=== PATIENT | male | born 1955 | race Caucasian/White ===

== ENCOUNTER 2017-10-18 11:41 | Inpatient (IN) | payer OTHER ==
[~2017-10-18] VITALS: Ht 180.3 cm; Wt 145.1 kg
[2017-10-18 11:51] VITALS: BP 183/80
[2017-10-18] MEDS ORDERED: NAPROSYN500 MG PO (11:54)
[2017-10-18] MEDS ORDERED: FLOMAX0.4 MG PO (11:55)
[2017-10-18] MEDS ORDERED: HUMALOG100 UNIT/1 SUBQ (11:55)
[2017-10-18] MEDS ORDERED: LIPITOR10 MG PO (11:55)
[2017-10-18] MEDS ORDERED: COZAAR 50 MG TA50 M2 PO (11:55)
[2017-10-18] MEDS ORDERED: GLUCOVANCE 2.51 EAC1 PO (11:55)
[2017-10-18] MEDS ORDERED: LANTUS100 UNIT/M SUBQ (11:55)
[2017-10-18] MEDS ORDERED: FISH OIL 1,001000 M2 PO (11:56)
[2017-10-18] MEDS ORDERED: MULTIVITAMINS1 EAC7 PO (11:56)
[2017-10-18] MEDS ORDERED: ASPIR 8181 MG PO (11:56)
[2017-10-18 13:33] LABS: ABSOLUTE BASOPHILS 0.1 thou/uL (0.0-0.2); ABSOLUTE EOSINOPHILS 0.4 thou/uL (0.0-0.7); ABSOLUTE MONOCYTES 1.4 thou/uL (0.0-1.2); ABSOLUTE NEUTROPHILS 10.4 thou/uL (1.6-8.1); HEMATOCRIT 36.3 % (42.0-52.0); HEMOGLOBIN 11.9 gm/dL (14.0-18.0); LYMPHOCYTES 14.1 %; MCH 29.8 pg (26.0-34.0); MCHC 32.6 g/dL (28.0-37.0); MCV 91.3 fL (80.0-100.0); MONOCYTES 9.4 %; MPV 9.3 fl. (7.2-11.1); NUCLEATED RBCS 0 /100WBC; PLATELET COUNT* 302 thou/uL (150-400); POLYS 72.5 %; RBC 3.98 mil/uL (4.50-6.00); RDW-CV 13.9 % (10.5-14.5); WBC 14.3 thou/uL (4.0-11.0)
[2017-10-18 13:42] LABS: CALCIUM 8.8 mg/dL (8.5-10.1); CREATININE 1.3 mg/dL (0.6-1.3)
[2017-10-18 13:47] LABS: ALBUMIN 3.1 g/dL (3.4-5.0); TOTAL BILIRUBIN 0.4 mg/dL (<0.1-1.0); TOTAL PROTEIN 7.7 g/dL (6.4-8.2)
--- NOTE | 2017-10-18 14:29 | NUR ---
INPATIENT NURSE GIVEN REPORT, GIVING PT DIFFERENT ROOM ASSIGNMENT, WILL CALL DOWN AFTER STAT CLEAN
[2017-10-18 16:33] VITALS: BP 148/78
[2017-10-18 17:28] VITALS: BP 136/74
--- NOTE | 2017-10-18 17:53 | NUR ---
ADMITTED TO ROOM 311 THIS AFTERNOON, BLOOD SUGAR 84, DENIES PAIN, NO DISTRESS NOTED, SEE ASSESSMENT FOR DETAILS, VANC INFUSING W/O DIFF TO 20G LAC, PHOTOS OF LEFT FOOT WOUND IN CHART, SPOKE TO HERRERA W/ PODIATRY, WILL ROUND ON PT IN AM, ANTICIPATE IV ABT THERAPY, POSSIBLE SURGICAL INTERVENTION TOWARD END OF WEEK. CARE PLAN REVIEWED W/ PT, NO QUESTIONS AT THIS TIME, CALL LIGHT IN REACH, CONT POC.
[2017-10-19 04:46] LABS: HEMATOCRIT 34.4 % (42.0-52.0); HEMOGLOBIN 11.3 gm/dL (14.0-18.0); MCHC 32.8 g/dL (28.0-37.0); MCV 91.6 fL (80.0-100.0); MPV 9.4 fl. (7.2-11.1); RBC 3.76 mil/uL (4.50-6.00); RDW-CV 13.4 % (10.5-14.5); WBC 11.6 thou/uL (4.0-11.0)
[2017-10-19 05:05] LABS: ALBUMIN 2.7 g/dL (3.4-5.0); CALCIUM 8.5 mg/dL (8.5-10.1); CREATININE 1.3 mg/dL (0.6-1.3); MAGNESIUM 1.4 mg/dL (1.8-2.4); POTASSIUM 3.7 mmol/L (3.5-5.1); TOTAL BILIRUBIN 0.4 mg/dL (<0.1-1.0)
--- NOTE | 2017-10-19 06:59 | NUR ---
PATIENT HAS RESTED THROUGHOUT THE NIGHT WITHOUT ANY ISSUES. PATIENT IS UP AD-CLIFF AND STEADY. VSS ON RA, ALTHOUGH BP ELEVATED. MEDICATIONS GIVEN AND CHARTED. NO C/O PAIN. ASSESSMENT CHARTED. IV IN RIGHT AC-SL. IV ABT'S GIVEN WITHOUT ANY ADVERSE SIDE EFFECTS NOTED. PATIENT INSTRUCTED TO USE CALL LIGHT WHEN NEEDING ASSISTANCE. HOURLY ROUNDS MADE. WILL CONTINUE WITH PLAN OF CARE AND NURSING TO MONITOR.
[2017-10-19 08:00] VITALS: BP 175/86
--- NOTE | 2017-10-19 11:32 | NUR ---
WOUND CARE NOTE: CONSULT RECEIVED FOR DIABETIC FOOT WOUND PATIENT PRESENTS WITH A FULL THICKNESS ULCERATION TO THE PLANTAR SURFACE OF HIS LEFT FOOT AT THE 4/5TH METATARSAL HEADS. WOUND MEASURES 2.5X3X1.5 WITH UNDERMINING FROM 6-11 O'CLOCK 1.5 CM. WOUND COVERED WITH YELLOW, MOIST, ADHERENT SLOUGH 100%. SRI-WOUND IS EDEMATOUS AND INFLAMMED. LEFT LOWER EXTREMITY IS EDEMATOUS. CLEANSED WOUND WITH WOUND CLEANSER, PATTED DRY. APPLIED AQUACEL AG INTO WOUND BED. COVERED WITH A BORDERED FOAM. FITTED PATIENT FOR A SIZE G TUBIGRIP TO ASSIST WITH EDEMA CONTROL. PATIENT TOLERATED DRESSING CHANGE WELL, NO PAIN INDICATED. EDUCATED PATIENT ON KEEPING OFF FOOT TO PROMOTE HEALING, COMMUNICATED UNDERSTANIDNG. EDUCATED PATIENT ON NEED FOR TIGHT BLOOD SUGAR CONTROL, COMMUNICATED UNDERSTANDING. EDUCATED PATIENT ON DRESSING SELECTION, COMMUNICATED UNDERSTANDING. RECOMMEND FOLLOW UP IN WOUND CENTER-HBO CANDIDATE? TIGHT BLOOD GLUCOSE CONTROL DEBRIDEMENT ELEVATION
--- NOTE | 2017-10-19 11:59 | 2DMMODE ---
[place] [address] 2 D/M-MODE ECHOCARDIOGRAM Name: SHILPA ZALDIVAR Room: [facility] ADM IN .John.#: [id number] Admission: 10/18/17 Attend Phys: Claudia Cole, Discharge: Date of : 53 Date of Service: 10/19/17 1159 Report #: [id number] THIS REPORT FOR: //name// APPROVED REPORT Study performed: 10/19/2017 10:18:14 EXAM: Comprehensive 2D, Doppler, and color-flow Echocardiogram Patient Location: In-Patient Room #: [facility] Status: routine BSA: 2.58 HR: 75 bpm BP: 136/74 mmHg Rhythm: NSR Other Information Study Quality: Good Indications Diabetes 2D Dimensions LVEF(%): 67.94 (>50%) IVSd: 14.53 (7-11mm) LVOT Diam: 20.10 (18-24mm) LVDd: 48.00 mm PWd: 14.14 (7-11mm) Ascending Ao: 36.87 (22-36mm) LVDs: 29.81 (25-40mm) Aortic Root: 36.14 mm Garcias's LVEF: 67.94 % Volumes Left Atrial Volume (Systole) LA ESV Index: 25.90 mL/m2 Aortic Valve AoV Peak Nick.: 1.47 m/s AO Peak Gr.: 8.68 mmHg LVOT Max P.02 mmHg AO Mean Gr.: 4.39 mmHg LVOT Mean P.71 mmHg LVOT Max V: 1.23 m/s AO V2 VTI: 31.77 cm LVOT Mean V: 0.75 m/s JONA (VTI): 2.67 cm2 LVOT V1 VTI: 26.72 cm Mitral Valve E/A Ratio: 0.76 [place] [address] 2 D/M-MODE ECHOCARDIOGRAM Name: SHILPA ZALDIVAR Room: [address] IN M.R.#: [id number] Admission: 10/18/17 Attend Phys: Claudia Cole, Discharge: Date of : 53 Date of Service: 10/19/17 1159 Report #: [id number] MV Decel. Time: 215.48 ms MV E Max Nick.: 0.96 m/s MV PHT: 62.49 ms MVA (PHT): 3.52 cm2 TDI E/Lateral E': 10.67 E/Medial E': 12.00 Medial E' Nick.: 0.08 m/s Lateral E' Nick.: 0.09 m/s Pulmonary Valve PV Peak Nick.: 0.92 m/s PV Peak Gr.: 3.36 mmHg Tricuspid Valve RAP Estimate: 5.00 mmHg TR Peak Gr.: 23.90 mmHg RVSP: 28.90 mmHg PA Pressure: 28.90 mmHg Left Ventricle The left ventricle is normal size. There is normal LV segmental wall motion. Mild to moderate concentric left ventricular hypertrophy. Left ventricular systolic function is normal. The left ventricular ejection fraction is within the normal range. LVEF is 55-60%. Grade I - abnormal relaxation pattern. Right Ventricle The right ventricle is normal size. The right ventricular systolic function is normal. Atria The left atrium size is normal. The right atrium size is normal. Aortic Valve Mild aortic valve sclerosis. Trace aortic regurgitation. There is no aortic valvular stenosis. Mitral Valve The mitral valve is normal in structure. Trace mitral regurgitation. No evidence of mitral valve stenosis. Tricuspid Valve The tricuspid valve is normal in structure. Trace tricuspid regurgitation. No pulmonary hypertension[place] [address] 2 D/M-MODE ECHOCARDIOGRAM Name: SHILPA ZALDIVAR Room: [address] IN [facility]#: [id number] Admission: 10/18/17 Attend Phys: Claudia Cole, Discharge: Date of : 53 Date of Service: 10/19/17 1159 Report #: [id number] Pulmonic valve is not well visualized. There is no pulmonic valvular regurgitation. Great Vessels The aortic root is normal in size. IVC is normal in size and collapses with >50% inspiration Pericardium There is no pericardial effusion. <Conclusion> Mild to moderate concentric left ventricular hypertrophy. LVEF is 55-60%. Mild aortic valve sclerosis. <ELECTRONICALLY SIGNED> By: Saleem Chen MD, FACC 10/19/17 1159 1159 1159 Saleem Chen MD, FACC /INF
--- NOTE | 2017-10-19 14:07 | NUR ---
CONSULTED TO PLACE PICC FOR PADDER ATB. ORDER AND CONSENT NOTED. SPOKE WITH PT ABOUT RISK AND BENIFIT. VOICED UNDERSTANDING AND AGREED. RIGHT UPPER ARM ASSESSED WITH ULTRASOUND. RIGHT CEPHALIC IDENTIFIED AND NOTED TO BE WIDLEY PATENT. 4FR SINGLE LUMAN POWER PICC PLACED TO RIGHT UPPER ARM CEPHALIC PER HOSPITAL POLICY. GOOD BRISK BLOOD RETURN AND EASY FLUSH. LINE CLEARED WITH SHERLOCK 3CG. LINE SECURED AND RELEASED FOR USE.
--- NOTE | 2017-10-19 14:26 | NUR ---
CM SPOKE TO THE PATIENT TO DISCUSS HOME SITUATION, DISCHARGE PLANNING, AND TO INFORM OF THE ROLE OF CM. PATIENT ALERT, ORIENTED, INDEPENDENT AND ACTIVE. PATIENT WORKS AND DRIVES. PATIENT RESIDES AT HOME WITH HIS SPOUSE. PATIENT OWNS 0 DME. PATIENT HAS NO HX OF OR SNF. PATIENT INFORMS THAT HIS ONLY DISCHARGE PLANNING CONCERN IS WITH BEING ABLE TO GET A KNEE SCOOTER FOR WHEN HE RETURNS TO WORK. CM SPOKE TO DR MACE AND SHE INFORMS THAT THE PATIENT MAY NEED I.V. ABT'S AT D/C. CM CONTACTED [facility] TO INFORM OF THE REFERRAL AND TO CHECK BENEFITS. CM WILL REMAIN AVAILABLE TO ASSIST AND FOLLOW NEEDED.
--- NOTE | 2017-10-19 15:41 | NUR ---
Nutrition: Pt seen for consult for wound. BMI is skewing nutrition risk. BMI: 44.7. Pt on CHO controlled diet. RD provided menu to pt. Admitted with Lt foot ulcer. H/o DM neuropathy, HTN, DM, gadiel. RX: insulin, aspirin, fish oil, MVI. Pt stated his last A1c, on Moday, was 8%. BG 65-194, alb 2.7, prealb 13.3. Has PICC for ABX. Eating 100% of meals. Has a knee scooter. We discussed importance of protein for wound healing. We briefly discussed importance of keeping tight BG control for wound healing. Pt understands. Agreed to Miguel b.i.d. RECOMMEND MVI WELL. Increased nutritent needs R/T wound healing AEB DM wound, depleted protein stores. Mild risk.
[2017-10-19 16:43] VITALS: BP 149/76
--- NOTE | 2017-10-19 17:17 | NUR ---
PATIENT RESTING IN BED. RALF TIS UP AD CLIFF IN ROOM. PATIENT HAS BEEN INSTRUCTED TO STAY OFF FOOT MUCH POSSIBLE. MARTITA WORKED WITH PHYSICAL THERAPY WITH SCOOTER TRAINING. PATIENT GIVEN SURGICAL WALKING SHOE FOR OFFLOADING. PATIENT SEEN BY WOUND CARE NURSE THIS AM. PATIENT HAD PICC LINE PLACED THIS AFTERNOON WITHOUT INCIDENT. PATIENT DENIES ANY NEEDS AT THIS TIME. CALL LIGHT WITHIN REACH. WILL CONTINUE TO MONITOR.
--- NOTE | 2017-10-19 20:57 | CON ---
[address] [address] CONSULTATION Name: ZENSHILPA Room: [address] IN M.R.#: [id number] Admission: 10/18/17 Attend Phys: Claudia Cole MD Discharge: Date of : 53 Report #: [id number] THIS REPORT FOR: //name// CC: Esteban Cole DATE OF SERVICE: 10/18/2017 CONSULTATION: Infectious diseases. HISTORY OF PRESENT ILLNESS: Mr Islas is a 62-year-old white male admitted to the hospital with deteriorating diabetic foot wound. The patient first noted the wound approximately 2 weeks ago. He saw his coding support specialist, was started on Augmentin and given an offloading boot. On followup, the wound appeared worse with more swelling and erythema. The patient was sent to the hospital for further evaluation. MRI showed evidence of osteomyelitis and septic arthritis of the fifth metatarsophalangeal joint. Infectious disease consultation was requested to assist with management. PAST MEDICAL HISTORY: Positive for diabetes with hypertension and hyperlipidemia. The patient is obese, weighing 317 pounds. He has prostatic hypertrophy. PAST SURGICAL HISTORY: Includes cholecystectomy. ALLERGIES: The patient has possible allergy to SULFA DRUGS. FAMILY HISTORY: Noncontributory. SOCIAL HISTORY: The patient is . 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 Denies use of tobacco or alcohol. REVIEW OF SYSTEMS: GENERAL: Negative for fevers, chills, sweats, weakness, malaise. ENT: No headache, sinus congestion, sore throat, trouble swallowing. NECK: No pain. CHEST: No cough, chest pain, shortness of breath. No angina. No syncope. No palpitations. GASTROINTESTINAL: The patient denies nausea, vomiting, diarrhea, constipation, abdominal pain. GENITOURINARY: No complaints. EXTREMITIES: The patient has minimal pain in his leg. PHYSICAL EXAMINATION: GENERAL: The patient appears comfortable, alert, oriented, pleasant, [place] [address] CONSULTATION Name: SHILPA ZALDIVAR Room: [address] IN ..#: [id number] Admission: 10/18/17 Attend Phys: Claudia Cole MD Discharge: Date of : 53 Report #: [id number] VITAL SIGNS: Show the patient has been afebrile since coming to the hospital. Blood pressure 136/74, pulse oximeter 96% to 99%. SKIN: Shows no rash, lesion or exanthem except for the foot described below. ENT: Negative. MENTAL STATUS: Normal. CARDIOVASCULAR: Heart sounds normal. LUNGS: Clear. ABDOMEN: Belly obese, soft, not tender. EXTREMITIES: Left foot has 1 to 2+ edema. On the plantar surface, around the fourth and fifth metatarsal head, is a malum perforans ulcer measuring about 1 x 2 x 0.5 cm. There are some superficial excoriations from tape, medial and on the dorsum of the foot. The forefoot is diffusely swollen, particularly on the lateral ray. The nails are in good repair. Pulses are palpable. Capillary refill is excellent. The other extremities are unremarkable. LABORATORY STUDIES: White count is 14.3, hemoglobin 11.9, platelets [id number]. Electrolytes normal. BUN 21, creatinine 1.3, albumin was normal. Liver function tests are normal. Lactate is normal. IMAGING DATA: The MRI shows osteomyelitis and septic arthritis under the wound. IMPRESSION: Diabetic foot wound with osteomyelitis. I discussed with the patient options include a ray amputation versus medical therapy, which involve 6 weeks of IV antibiotics based on cultures, offloading, and possible hyperbaric oxygen treatments as an adjunct. The patient has been started on vancomycin and Zosyn, which should offer excellent broad spectrum coverage pending results of cultures. I would like to check for metabolic impediments to healing such as hypothyroidism, poor nutrition, low zinc, and congestive heart failure. I would like to check hemoglobin A1c to assess his diabetic control. I would like for the patient to offload the foot as much as possible. In addition to the offloading boot, we may want to have physical therapy assist the patient with either crutch training or possibly even use of a knee scooter to try to keep his weight off the wound until it heals. I appreciate the opportunity of input in the care of this complex patient. I will be happy to follow the patient while he is in the hospital until Dr. Randolph returns. Thank you for this consultation. <ELECTRONICALLY SIGNED> By: Esteban Lee MD 10/19/172056 26 [id number] Lee MD /kajal
[2017-10-20] VITALS: BP 153/70
[2017-10-20 06:44] LABS: HEMATOCRIT 34.7 % (42.0-52.0); HEMOGLOBIN 11.5 gm/dL (14.0-18.0); MCH 29.8 pg (26.0-34.0); MCHC 33.1 g/dL (28.0-37.0); MCV 90.2 fL (80.0-100.0); MPV 8.8 fl. (7.2-11.1); RBC 3.85 mil/uL (4.50-6.00); RDW-CV 13.6 % (10.5-14.5); WBC 12.4 thou/uL (4.0-11.0)
[2017-10-20 06:52] LABS: ALBUMIN 2.8 g/dL (3.4-5.0); CREATININE 1.2 mg/dL (0.6-1.3); MAGNESIUM 1.6 mg/dL (1.8-2.4); POTASSIUM 3.7 mmol/L (3.5-5.1); TOTAL BILIRUBIN 0.3 mg/dL (<0.1-1.0); TOTAL PROTEIN 7.4 g/dL (6.4-8.2)
--- NOTE | 2017-10-20 06:52 | NUR ---
AOX4, PLEASANT. UP AD CLIFF IN ROOM. TUBIGRIP TO RLE. R PICC SL, ABX GIVEN ORDERED. DENIES PAIN OR PROBLEMS. HS ACCUCHECK 246, INSULIN GIVEN PT REQUESTS, HS SNACK GIVEN. AM LABS DRAWN. ABLE TO USE CALL LITE AND MAKE NEEDS KNOWN.
[2017-10-20 07:02] LABS: PREALBUMIN 13.3 mg/dL (18.0-35.7)
[2017-10-20 08:15] VITALS: BP 169/84
--- NOTE | 2017-10-20 14:10 | NUR ---
JEFERSON CONTACTED [employer] [facility] TO DISCUSS COST OF KNEE SCOOTER. [employer] [facility] INFORMS THAT THEY ARE '$500 MONTANEZ ONLY' FOR THE KNEE SCOOTER. [facility] NO LONGER SELLS KNEE SCOOTERS. [facility] INFOORMS THAT THEY ARE NOT IN NETWORK WITH THE PATIENTS INSURANCE, BUT CAN PROVIDE THE DME FOR $40 WK OR $140 PER MONTH. CM ALSO PROVIDED THE PATIENT WITH PRINTED INFO FOR [employer] WHICH HAS KNEE SCOOTERS FOR $138 ONLINE AND HAS 2-DAY SHIPPING. CM SPOKE TO THE PATIENT TO DISCUSS THE NEED FOR A KNEE SCOOTER, AND TO INFORM OF THE COST. PATIENT INFORMS THAT HE WILL DISCUSS THIS INFO WITH HIS SPOUSE. CM WILL REMAIN AVAILABLE TO ASSIST AND FOLLOW NEEDED.
[2017-10-20 16:12] VITALS: BP 177/89
--- NOTE | 2017-10-20 19:07 | NUR ---
PATIENT HAS BEEN A/O X 4 THIS SHIFT. HAS DENIED PAIN. DRESSING CHANGED TO LEFT FOOT THIS SHIFT, POST OP SHOE IN PLACE AND REMINDED TO KEEP WEIGHT OFF OF FOOT. BLOOD SUGARS CHARTED AND SS GIVEN WHEN INDICATED. CALLED AND SPOKE TO MICRO REGARDING CULTURES RESULTS AND STATES STILL PENDING. CULTURE RESULTS FROM OUTPATIENT PLACED IN CHART. RIGHT UPPER ARM PICC PATENT. PATIENT HOPEFUL TO BE DISCHARGED SOON. HOURLY ROUNDING COMPLETED. CALL LIGHT WITHIN REACH. WILL CONTINUE WITH PLAN OF CARE.
[2017-10-20 22:00] VITALS: BP 190/84
--- NOTE | 2017-10-21 05:35 | NUR ---
PATIENT SLEPT MOST OF THE NIGHT. PICC LINE REMAINS IN PLACE. IV ANTIBIOTIC WAS GIVEN ORDERED. DRESSING WAS CHANGED TO LEFT FOOT WOUND ONCE. PATIENT IS POSSIBLY GOING HOME TODAY. WILL CONTINUE TO MONITOR.
[2017-10-21 06:16] LABS: HEMOGLOBIN 11.9 gm/dL (14.0-18.0); MCH 29.6 pg (26.0-34.0); MCV 89.5 fL (80.0-100.0); MPV 8.8 fl. (7.2-11.1); RBC 4.03 mil/uL (4.50-6.00); RDW-CV 13.4 % (10.5-14.5); WBC 12.7 thou/uL (4.0-11.0)
[2017-10-21 06:41] LABS: CALCIUM 9.8 mg/dL (8.5-10.1); CREATININE 1.1 mg/dL (0.6-1.3); MAGNESIUM 1.6 mg/dL (1.8-2.4); POTASSIUM 3.9 mmol/L (3.5-5.1)
[2017-10-21 08:00] VITALS: BP 169/84
[2017-10-21 12:19] VITALS: BP 169/84
[2017-10-21] MEDS ORDERED: ROCEPHIN 11 GM/1001 IV (12:19)
[2017-10-21 15:36] VITALS: BP 169/84
--- NOTE | 2017-10-21 15:40 | NUR ---
SW met with pt to discuss knee scooter options and pt said he contacted his insurance who said knee scooter could be provided after all. SU contacted [facility] and received authorization and faxed information to provider choice of [employer]. SW faxed final order and information needed to [employer]; teaching and antibiotic delivered to pt prior to pt dc. Pt expressed comfort and understanding with the IV abx administering and pt will have pt to support and assist as needed.
--- NOTE | 2017-10-21 16:11 | NUR ---
PATIENT AND SPOUSE GIVEN DISCHARGE INSTRUCTIONS AT THIS TIME. PATIENT'S PICC LINE DRESSING CHANGED PRIOR TO DISCHARGE. DRESSING CHANGED TO LEFT FOOT AND PICS OBTAINED. PATIENT VERBALIZED UNDERSTANDING IN REGARDS TO DISCHARGE, WOUND CARE AND FOLLOW UP APPOINTMENTS. DISCHARGED TO HOME AT THIS TIME VIA WHEELCHAIR. PATIENT ESCORTED OFF NURSING UNIT VIA WHEELCHAIR WITH NURSING STAFF.
[2017-11-07] MEDS ORDERED: CIPRO250 M2 PO (13:32)
[2017-11-07] MEDS ORDERED: LANTUS100 UNIT/M SUBQ (13:35)
[2017-11-09] MEDS ORDERED: TYLENOL325 MG PO (16:49)
[2017-11-09] MEDS ORDERED: NORCO 5-325 TA1 EACH PO (16:55)
--- NOTE | 2018-01-12 12:18 | CON ---
[address] [address] CONSULTATION Name: SHILPA ZALDIVAR Room: [address] [place] M.R.#: [id number] Admission: 10/18/17 Attend Phys: Claudia Cole MD Discharge: 10/21/17 Date of : 53 Report #: [id number] THIS REPORT FOR: //name// CC: Esteban Cole DATE OF SERVICE: 10/19/2017 REASON FOR CONSULTATION: Diabetic foot infection of the left foot. HISTORY OF PRESENT ILLNESS: This 62-year-old male was admitted to the hospital after being referred to ER from my office. The patient was seen a week ago for referral from Dr. Gentile's office for diabetic foot infection. Cultures revealed Staph aureus. He was on Augmentin. He had significant erythema, edema, and ulceration with some necrotic debris, although it did not appear to probe to bone at that time. No sign of abscess was present. The patient was seen yesterday and condition had worsened. There did appear to be some small abscess under the fourth MPJ, I was able to exsanguinate fluid from. The erythema had not improved if not worsened and appeared to be able to probe to bone in the ulcer. He was referred to the ER. MRI revealed osteomyelitis of the proximal phalanx with septic arthritis of the fifth MPJ. Infectious Disease consultation has been performed. PAST MEDICAL HISTORY: Remarkable for diabetes, hypertension, hyperlipidemia and renal disease. OBJECTIVE FINDINGS: My physical exam reveals +2 edema. There is ulceration with measures 1 cm x 2 cm x 0.5 cm depth. There is erythema extending into the arch and on the dorsum of the foot with majority erythema around the fifth MPJ. LAB STUDIES: Reveal white blood cell count of 14.3, hemoglobin 11.9, BUN 21, creatinine 1.3. IMPRESSION: My impression is diabetic ulceration with osteomyelitis of the left foot. PLAN: Discussed options with the patient. The patient states that Dr. Lee had recommended IV antibiotic therapy with offloading. I discussed options with the patient the advantages and disadvantages involved of treatments including amputation of the fifth digit and fifth metatarsal head. The patient preferred to try IV antibiotic and wound care. Therefore, we will consult wound care for management of the ulceration and have infectious disease manage infection and refer to the [facility] [place] [address] CONSULTATION Name: SHILPA ZALDIVAR Room: [address] [place] .R.#: [id number] Admission: 10/18/17 Attend Phys: Claudia oCle MD Discharge: 10/21/17 Date of : 53 Report #: [id number] Thank you for this referral. <ELECTRONICALLY SIGNED> By: Javier Dooley DPM 01/12/18 1218 0846 Rich Dooley DPM /kajal
== END 2017-10-21 16:14 | disposition home or self-care (01) | DRG 638 ==
LOC: M.ERS 11:41 → M.TBA-ER 14:11 → M.3W 14:11
PROVIDERS: Internal Medicine Infectious Disease; Nurse Practitioner Psychiatric/Mental Health; ADMIT Internal Medicine
PROC: 05HY33Z Insertion of Infusion Device into Upper Vein, Percutaneous Approach (ICD-10-PCS; principal; 2017-10-19)
PROC: B54MZZZ Ultrasonography of Right Upper Extremity Veins (ICD-10-PCS; principal; 2017-10-19)
DX: E11.69 Type 2 diabetes mellitus with other specified complication (principal); M86.8X7 Other osteomyelitis, ankle and foot; L03.116 Cellulitis of left lower limb; R65.10 Systemic inflammatory response syndrome (SIRS) of non-infectious origin without acute organ dysfunction; E44.1 Mild protein-calorie malnutrition; Z68.41 Body mass index [BMI] 40.0-44.9, adult; E11.40 Type 2 diabetes mellitus with diabetic neuropathy, unspecified; E11.319 Type 2 diabetes mellitus with unspecified diabetic retinopathy without macular edema; N28.9 Disorder of kidney and ureter, unspecified; E11.621 Type 2 diabetes mellitus with foot ulcer; I10 Essential (primary) hypertension; E78.5 Hyperlipidemia, unspecified; E78.00 Pure hypercholesterolemia, unspecified; N40.0 Benign prostatic hyperplasia without lower urinary tract symptoms; L40.9 Psoriasis, unspecified; Z88.2 Allergy status to sulfonamides; Z90.49 Acquired absence of other specified parts of digestive tract; Z79.2 Long term (current) use of antibiotics; Z79.4 Long term (current) use of insulin; Z79.899 Other long term (current) drug therapy

== ENCOUNTER → 2017-10-26 | Outpatient (CLI) | payer OTHER ==
[~2017-10-26] MED LIST: ASPIR 8181 MG PO; CIPRO250 M2 PO; COZAAR 50 MG TA50 M2 PO; FISH OIL 1,001000 M2 PO; FLOMAX0.4 MG PO; GLUCOVANCE 2.51 EAC1 PO; HUMALOG100 UNIT/1 SUBQ; LANTUS100 UNIT/M SUBQ; LIPITOR10 MG PO; MULTIVITAMINS1 EAC7 PO; NAPROSYN500 MG PO; NORCO 5-325 TA1 EACH PO; ROCEPHIN 11 GM/1001 IV; TYLENOL325 MG PO
--- NOTE | 2017-10-27 12:35 | CON ---
[address] [address] CONSULTATION Name: SHILPA ZALDIVAR Room: [facility] Annabella.John.#: [id number] Admission: 10/26/17 Attend Phys: Oneil Bradley DPM Discharge: Date of : 53 Report #: [id number] THIS REPORT FOR: //name// CC: Oneil Randolph DATE OF SERVICE: 10/26/2017 Infectious Disease Consultation ATTENDING PHYSICIAN: Oneil Bradley DPM REASON FOR EVALUATION: Deep infection involving the left foot setting of chronic ulceration overlying the fifth metatarsal site with imaging evidence of possible septic arthritis and osteomyelitis. HISTORY OF PRESENT ILLNESS: Chart reviewed, patient examined. This is a 62-year-old with diabetes mellitus who was hospitalized with chronic wound, noted it had increasing inflammation associated with the distal lower extremity. Previous culture had growth of susceptible Staph aureus, had been on Augmentin. He was discharged on ceftriaxone and repeat culture did have now growth of Morganella, which is not clear about susceptibilities to ceftriaxone based on the reporting. It is not listed. There is some moderate degree of pain associated with the site. He does have some peripheral neuropathy. Generally, he has not been systemically ill. ALLERGIES: SULFA. MEDICATIONS: Include aspirin, atorvastatin, ceftriaxone, enoxaparin, insulin, losartan, pantoprazole, tamsulosin, and multivitamin. PAST MEDICAL HISTORY: Includes diabetes mellitus type 2, hypertension, elevated cholesterol, peripheral neuropathy, psoriasis. SOCIAL HISTORY: Nonsmoker, no ethanol. FAMILY HISTORY: Noncontributory. REVIEW OF SYSTEMS: As above. PHYSICAL EXAMINATION: GENERAL: Pleasant, alert, cooperative, appropriate. VITAL SIGNS: Vital signs are stable. HEENT: [place] [address] CONSULTATION Name: RACHANALEEMARTINSHILPA Gilman Room: [facility].#: [id number] Admission: 10/26/17 Attend Phys: Oneil Bradley DPM Discharge: Date of : 53 Report #: [id number] NECK: Supple. LUNGS: Breathing is nonlabored. EXTREMITIES: Left foot has some Charcot changes. There is lateral plantar ulcer overlying the fifth metatarsal, also has recent breakdown over the arch. There is some moderate degree of inflammation. LABORATORY DATA: Review of recent cultures reported today now shows Morganella. This is after he has left and Enterococcus in a combination culture, which is penicillin susceptible. ASSESSMENT: Deep foot infection. It is not entirely clear whether this is truly osteomyelitis. We will continue the ceftriaxone and discuss with Dr. Bradley. I think we will notify the patient and add ciprofloxacin, as well given in vitro resistance to the Augmentin and worsening signs and symptoms in the setting of previous deep culture involving Staph aureus. We will see him back in 1 week and get weekly labs. <ELECTRONICALLY SIGNED> By: Blayne Randolph MD 10/27/17 1235 1727 [id number] Randolph MD /kajal
== END ==
LOC: M.WC 13:18
DX: E11.621 Type 2 diabetes mellitus with foot ulcer (principal); L97.521 Non-pressure chronic ulcer of other part of left foot limited to breakdown of skin; I10 Essential (primary) hypertension; E78.5 Hyperlipidemia, unspecified

== ENCOUNTER → 2017-11-02 | Outpatient (CLI) | payer OTHER ==
--- NOTE | 2017-11-03 11:44 | CON ---
[address] [address] CONSULTATION Name: ZENSHILPA Room: [facility] M.John.#: [id number] Admission: 11/02/17 Attend Phys: Oneil Bradley DPM Discharge: Date of : 53 Report #: [id number] THIS REPORT FOR: //name// CC: Oneil Gentile DATE OF SERVICE: 11/02/2017 Infectious Disease Consultation ATTENDING PHYSICIAN: Oneil Bradley DPM HISTORY OF PRESENT ILLNESS: He is here for followup: Left lateral foot chronic ulcer involving the plantar aspect overlying the fifth MTP. The patient examined , although returns in followup. Generally, he feels a little changed from previous. Denies any systemic illness. Evaluation ordered by Dr. Bradley last week including x-ray showed changes in the bone, likely destructive consistent with chronic osteomyelitis. He has got a new wound in the webspace between the fourth and fifth toe that extends several centimeters. Probable chronic osteomyelitis. At this point, Dr. Bradley recommends additional surgery, did review the cultures , although initially had the Staph aureus, now he has got Morganella. Ciprofloxacin was added based on susceptibilities, so he is on combination ceftriaxone and Cipro at this point. I did ask Dr. Bradley to get the cultures at the time of sounds like ray amputation. It is scheduled hopefully within the next week. We will adjust therapy as needed. Continue to monitor expectantly. We will see him back within 1 to 2 weeks depending on the timing of the surgery. <ELECTRONICALLY SIGNED> By: Blayne Randolph MD 11/03/17 1144 1620 0326Jogarry Randolph MD /nt
== END ==
LOC: M.WC 03:24
DX: E11.621 Type 2 diabetes mellitus with foot ulcer (principal); L97.521 Non-pressure chronic ulcer of other part of left foot limited to breakdown of skin; E78.5 Hyperlipidemia, unspecified; I10 Essential (primary) hypertension

== ENCOUNTER → 2017-11-09 | Day surgery (SDC) | payer OTHER ==
--- NOTE | 2017-11-11 10:21 | EKG ---
[place] [address] ELECTROCARDIOGRAM REPORT Name: SHILPA ZALDIVAR [id number] Admission: 11/09/17 Attend Phys: Oneil Bradley DPM Discharge: Date of : 53 Report #: [id number] THIS REPORT FOR: //name// [facility] Test Date: 2017-11-09 Test Time: 13:56:51 Pat Name: SHILPA ZALDIVAR Department: Room: Gender: M Hospital Pharmacy Director: : 1955 Requested By: Oneil Bradley Order Number: [id number] Reading MD: Osmar Almaraz Measurements Intervals [place] Rate: 77 P: -7 RI: 175 QRS: -21 QRSD: 88 T: 30 QT: 376 QTc: 426 Interpretive Statements Sinus rhythm Borderline left axis deviation Compared to ECG 06/01/2006 13:59:38 No significant changes Electronically Signed On 11-11-2017 10:21:19 CDT by Osmar Almaraz [email or web address] <ELECTRONICALLY SIGNED> By: Osmar Almaraz MD, [facility] 11/11/17 1021 1356 1356 Osmar Almaraz MD, [facility] /EPI
--- NOTE | 2017-11-16 13:04 | OP ---
[address] [address] OPERATIVE REPORT Name: ZENSHILPA Room: [facility]..#: [id number] Admission: 11/09/17 Attend Phys: Oneil Bradley DPM Discharge: Date of : 53 Report #: [id number] THIS REPORT FOR: //name// CC: Oneil Randolph DATE OF SERVICE: 11/09/2017 SURGEON: Oneil Bradley DPM PREOPERATIVE DIAGNOSIS: Osteomyelitis, left fifth MTP with type 2 diabetes mellitus. POSTOPERATIVE DIAGNOSES: Osteomyelitis, left fifth MTP with type 2 diabetes mellitus. PROCEDURE: 1. Resection, left distal fifth metatarsal and fifth toe. 2. Incision and drainage, left foot. 3. Pedicle skin flap, left foot. ANESTHESIA: MAC. INJECTABLES: 30 mL of a 1:1 mixture of 0.5% Marcaine plain and 1% lidocaine plain. HEMOSTASIS: Left ankle pneumatic tourniquet at 275 mmHg. SUTURES: 3-0 nylon. SPECIMENS: Left distal fifth metatarsal and fifth toe. CULTURES: 1. Bone, proximal phalanx of left fifth toe, aerobic and anaerobic. 2. Soft tissue, left foot, aerobic and anaerobic. ESTIMATED BLOOD LOSS: Minimal. COMPLICATIONS: None. DESCRIPTION OF PROCEDURE: The patient brought to the OR and placed on the table supine with induction of MAC anesthesia. A well-padded left ankle pneumatic tourniquet was placed. A local anesthetic block was given to the foot and it was prepped and draped aseptically. The foot was exsanguinated with inflation of the tourniquet. A #10 surgical blade was used [place] [address] OPERATIVE REPORT Name: ZENSHILPA Room: [facility].#: [id number] Admission: 11/09/17 Attend Phys: Oneil Bradley DPM Discharge: Date of : 53 Report #: [id number] incision over the left distal fifth metatarsal and then circumferentially around the fifth toe. Layered anatomic dissection utilized with electrocautery for hemostasis. The fifth toe was disarticulated at the MTP joint. The base of the proximal phalanx had osteolysis with discoloration, consistent with osteomyelitis. The distal fifth metatarsal was slightly discolored with a yellowish hue, but no bone destruction was noted to the metatarsal head. I transected the fifth metatarsal at the distal metaphysis where the bone was hard. I submitted the portion of bone from the proximal phalanx for aerobic and anaerobic cultures. The remaining fifth toe and fifth metatarsal were sent for surgical pathology. The flexor and extensor tendons were transected proximally and the wound was flushed with sterile saline with bacitracin irrigant. A plantar lateral skin flap was mobilized dorsomedially and sutured with 3-0 nylon in simple interrupted fashion for complete surgical incision closure. The existing plantar wound at the fifth MTP region was debrided with a scalpel to remove subcutaneous tissue and callus from the margins. It was cleansed and dried. The incision and wound were dressed with Aquacel Ag and covered with fluffs, ABDs, Kerlix and Ramez bandage. The tourniquet was deflated, and the patient left the OR alert and oriented with no pain or complications noted. <ELECTRONICALLY SIGNED> By: Oneil Bradley DPM 11/16/17 1304 1802 1820Dashobha Bradley DPM /nt
--- NOTE | 2017-11-17 07:06 | PATH ---
[address] [address] PATHOLOGY RPT PROCEDURE Name: ZENSHILPA Room: [facility] Arpan#: [id number] Admission: 11/09/17 Date of : 53 Discharge: Report #: [id number] Path Case #: [id number] [facility] Accession Number: [id number] . 01 Material submitted: . LEFT 5TH TOE AND METATARSAL . 01 Clinical history: . Osteomyelitis left fifth metatarsal . 02 Diagnosis: Left fifth toe and metatarsal: - Benign toe showing phalangeal osteomyelitis in association with foreign body type granulomata entrapping predominantly nonbirefrigent foreign material. - Separate benign osteocartilaginous segment consistent with metatarsal with prominent osteomyelitis at articular end, with opposite transection end free of osteomyelitis. (AMADOU:marko; 11/12/2017) QMS/11/14/2017 . 02 Electronically signed: . Owen Canseco MD, Pathologist NPI- [id number] . 01 Gross description: . The specimen is received in formalin, labeled "Shilpa Zaldivar, left fifth toe and metatarsal". Received is an amputated digit measuring 4.6 x 2.1 x 2.1 cm in greatest dimensions. The bone margin is jagged in appearance. The bone and soft tissue margins are inked black. The nail is present displaying a pale arias and slightly flaky appearance. The epidermal surface is pale arias and slightly flaky in appearance. A full length longitudinal cross section is submitted from proximal to distal aspects in cassettes A1 and A2, following decalcification. . Also received within the specimen container is an additional segment of bone measuring 3.5 x 2.0 x 1.3 cm in greatest matured. One margin is blunt in appearance, consistent with transection, and the opposite margin is smooth and convex in appearance, consistent with disarticulation. The transected margin is inked blue. A full-thickness longitudinal cross section is submitted from proximal to distal aspects in cassettes A3 and A4, following decalcification. (CAA; 11/10/2017) QAC/QAC . 02 Pathologist provided ICD-10: M86.8X7 . 02 [place] [address] PATHOLOGY RPT PROCEDURE Name: SHILPA ZALDIVAR Room: [facility]..#: [id number] Admission: 11/09/17 Date of : 53 Discharge: Report #: [id number] Path Case #: [id number] [facility] . [id number], [id number] Performed at: 01 [facility] [place] [address] [facility] [address], [place] [id number] MD Emile Raya MD Phone: [phone] Performed at: 02 [facility] [address], [place], [place] [id number] MD Owen Canseco MD Phone: [phone]
== END | disposition home or self-care (01) ==
LOC: M.SUR 09:59
DX: E11.69 Type 2 diabetes mellitus with other specified complication (principal)

== ENCOUNTER → 2017-11-16 | Outpatient (CLI) | payer OTHER ==
--- NOTE | 2017-11-17 15:01 | CON ---
[address] [address] CONSULTATION Name: SHILPA ZALDIVAR Room: [facility] TRAY Gonzalez.#: [id number] Admission: 11/16/17 Attend Phys: Oneil Bradley DPM Discharge: Date of : 53 Report #: [id number] THIS REPORT FOR: //name// CC: Oneil Gentile DATE OF SERVICE: 11/16/2017 INFECTIOUS DISEASE CONSULTATION ATTENDING PHYSICIAN: Oneil Bradley DPM. HISTORY OF PRESENT ILLNESS: This patient is seen in the [facility] at [place]. The patient is seen in followup. He is post surgery involving his left foot further debridement with partial osteoectomy. This was confirmed on pathology to have osteomyelitis. He has completed roughly 4 weeks of combination therapy with Cipro and ceftriaxone. Clinically, he has done well over the course of the last week. He denies any significant localizing signs or symptoms. He has not been systemically ill. ASSESSMENT AND PLAN: Chronic osteomyelitis. He is post left foot partial osteoectomy. We will continue therapy as prescribed, likely additional 2 weeks. We will see him back on a weekly basis at this point. Wound care as per Dr. Bradley. He did instruct him to continue to offload the site and elevate to minimize swelling to the extent possible. <ELECTRONICALLY SIGNED> By: Blayne Randolph MD 11/17/17 1501 0858 [id number] Randolph MD /kajal
== END ==
LOC: M.WC 04:37
DX: T81.89XA Other complications of procedures, not elsewhere classified, initial encounter (principal); E11.621 Type 2 diabetes mellitus with foot ulcer; L97.521 Non-pressure chronic ulcer of other part of left foot limited to breakdown of skin; L89.893 Pressure ulcer of other site, stage 3; E11.40 Type 2 diabetes mellitus with diabetic neuropathy, unspecified; E11.69 Type 2 diabetes mellitus with other specified complication; M86.672 Other chronic osteomyelitis, left ankle and foot; I10 Essential (primary) hypertension; L84 Corns and callosities; E78.5 Hyperlipidemia, unspecified; Y92.89 Other specified places as the place of occurrence of the external cause; Y83.8 Other surgical procedures as the cause of abnormal reaction of the patient, or of later complication, without mention of misadventure at the time of the procedure

== ENCOUNTER → 2017-11-23 | Outpatient (CLI) | payer OTHER ==
--- NOTE | 2017-11-25 07:56 | CON ---
[address] [address] CONSULTATION Name: ZENSHILPA Room: [facility] TRAY Gonzalez.#: [id number] Admission: 11/23/17 Attend Phys: Oneil Bradley DPM Discharge: Date of : 53 Report #: [id number] THIS REPORT FOR: //name// CC: Oneil Gentile DATE OF SERVICE: 11/23/2017 ATTENDING PHYSICIAN: Dr. Oneil Bradley. REASON FOR EVALUATION: Here for osteomyelitis of the left lateral foot. He is post-fifth toe ray amputation. Chart reviewed, patient examined. This is a 62-year-old, seen in followup, having undergone operative procedure roughly 2 weeks ago. He had been hospitalized 5 weeks ago, was started on therapy. Operative cultures were negative at that time including the bone. He has generally been doing fairly well ____ antibiotics, ceftriaxone. On evaluation, the wound appears to be clearly improved. Denies any systemic or localizing signs and symptoms. I did review the labs, which showed sed rate to be normal. ASSESSMENT AND PLAN: Chronic osteomyelitis. At this point, given the totality information, I think it is reasonable to discontinue the antibiotics. He has completed roughly 5 weeks of treatment. Discussed with Dr. Bradley who was agreeable. We will go and remove the PICC line as well. We will see him back in 1 week, likely be discharged from my care at that point. <ELECTRONICALLY SIGNED> By: Blayne Randolph MD 11/25/17 0756 1022 [id number] Anita Randolph MD /nt
== END ==
LOC: M.WC 04:52
DX: T81.89XD Other complications of procedures, not elsewhere classified, subsequent encounter (principal); E11.40 Type 2 diabetes mellitus with diabetic neuropathy, unspecified; L89.893 Pressure ulcer of other site, stage 3; L97.521 Non-pressure chronic ulcer of other part of left foot limited to breakdown of skin; E11.69 Type 2 diabetes mellitus with other specified complication; M86.672 Other chronic osteomyelitis, left ankle and foot; I10 Essential (primary) hypertension; E78.5 Hyperlipidemia, unspecified; Y83.8 Other surgical procedures as the cause of abnormal reaction of the patient, or of later complication, without mention of misadventure at the time of the procedure

== ENCOUNTER → 2017-11-30 | Outpatient (CLI) | payer OTHER | LOC: M.WC 03:05 | DX: T87.89 Other complications of amputation stump (principal); E11.621 Type 2 diabetes mellitus with foot ulcer; L97.521 Non-pressure chronic ulcer of other part of left foot limited to breakdown of skin; E11.42 Type 2 diabetes mellitus with diabetic polyneuropathy; E11.69 Type 2 diabetes mellitus with other specified complication; M86.672 Other chronic osteomyelitis, left ankle and foot; L84 Corns and callosities; E78.5 Hyperlipidemia, unspecified; I10 Essential (primary) hypertension; Y83.5 Amputation of limb(s) as the cause of abnormal reaction of the patient, or of later complication, without mention of misadventure at the time of the procedure ==

== ENCOUNTER → 2017-12-07 | Outpatient (CLI) | payer OTHER ==
--- NOTE | 2017-12-08 12:26 | CON ---
[address] [address] CONSULTATION Name: ZENSHILPA Room: [facility] TRAY Gonzalez.#: [id number] Admission: 12/07/17 Attend Phys: Oneil Bradley DPM Discharge: Date of : 53 Report #: [id number] THIS REPORT FOR: //name// CC: Oneil Gentile DATE OF SERVICE: 12/07/2017 INFECTIOUS DISEASE CONSULTATION AND FOLLOWUP ATTENDING PHYSICIAN: Dr. Oneil Bradley. HISTORY OF PRESENT ILLNESS: The patient returns in followup. He is post-debridement of deep-seated infection involving his left foot post-osteoectomy, continues to have wounds, although they clearly have improved over the course of the last 2 weeks since I last saw him. At that point, antibiotics were felt to have been sufficient. They were discontinued, PICC line was pulled. On questioning, he denies any particular illness in the interim, states he has generally been feeling well. Appetite is good. No fevers. Really, he has no discomfort associated with his foot. On evaluation, Dr. Bradley felt the wound continued to improve. He did debride it. There was no exposed hard tissue or bone at the base. IMPRESSION AND PLAN: Osteomyelitis, left foot. We will not plan on additional antibiotics, he has been off for 2 weeks and he continued to improve. He needs to optimize his nutritional status, offload is critical in addition to the wound care. <ELECTRONICALLY SIGNED> By: Blayne Randolph MD 12/08/17 1226 0902 [id number] Randolph MD /nt
== END ==
LOC: M.WC 05:20
DX: T87.89 Other complications of amputation stump (principal); E11.621 Type 2 diabetes mellitus with foot ulcer; L97.521 Non-pressure chronic ulcer of other part of left foot limited to breakdown of skin; L84 Corns and callosities; E11.69 Type 2 diabetes mellitus with other specified complication; M86.672 Other chronic osteomyelitis, left ankle and foot; E11.42 Type 2 diabetes mellitus with diabetic polyneuropathy; E78.5 Hyperlipidemia, unspecified; I10 Essential (primary) hypertension; Y83.5 Amputation of limb(s) as the cause of abnormal reaction of the patient, or of later complication, without mention of misadventure at the time of the procedure

== ENCOUNTER → 2017-12-14 | Outpatient (CLI) | payer OTHER | LOC: M.WC 04:31 | DX: T81.89XA Other complications of procedures, not elsewhere classified, initial encounter (principal); E11.621 Type 2 diabetes mellitus with foot ulcer; L97.521 Non-pressure chronic ulcer of other part of left foot limited to breakdown of skin; L89.893 Pressure ulcer of other site, stage 3; L84 Corns and callosities; E11.69 Type 2 diabetes mellitus with other specified complication; M86.672 Other chronic osteomyelitis, left ankle and foot; E11.42 Type 2 diabetes mellitus with diabetic polyneuropathy; E78.5 Hyperlipidemia, unspecified; I10 Essential (primary) hypertension; Y92.89 Other specified places as the place of occurrence of the external cause; Y83.8 Other surgical procedures as the cause of abnormal reaction of the patient, or of later complication, without mention of misadventure at the time of the procedure ==

== ENCOUNTER → 2017-12-21 | Outpatient (CLI) | payer OTHER | LOC: M.WC 04:00 | DX: T87.89 Other complications of amputation stump (principal); E11.621 Type 2 diabetes mellitus with foot ulcer; L97.521 Non-pressure chronic ulcer of other part of left foot limited to breakdown of skin; L89.893 Pressure ulcer of other site, stage 3; L84 Corns and callosities; E11.69 Type 2 diabetes mellitus with other specified complication; M86.672 Other chronic osteomyelitis, left ankle and foot; E11.40 Type 2 diabetes mellitus with diabetic neuropathy, unspecified; E78.5 Hyperlipidemia, unspecified; I10 Essential (primary) hypertension; Y83.5 Amputation of limb(s) as the cause of abnormal reaction of the patient, or of later complication, without mention of misadventure at the time of the procedure ==

== ENCOUNTER → 2017-12-28 | Outpatient (CLI) | payer OTHER | LOC: M.WC 01:57 | DX: T87.89 Other complications of amputation stump (principal); E11.621 Type 2 diabetes mellitus with foot ulcer; L97.521 Non-pressure chronic ulcer of other part of left foot limited to breakdown of skin; E11.69 Type 2 diabetes mellitus with other specified complication; M86.672 Other chronic osteomyelitis, left ankle and foot; E11.40 Type 2 diabetes mellitus with diabetic neuropathy, unspecified; E78.5 Hyperlipidemia, unspecified; I10 Essential (primary) hypertension; Y83.5 Amputation of limb(s) as the cause of abnormal reaction of the patient, or of later complication, without mention of misadventure at the time of the procedure ==

== ENCOUNTER → 2018-01-04 | Outpatient (CLI) | payer OTHER | LOC: M.WC 05:43 | DX: T87.89 Other complications of amputation stump (principal); E11.621 Type 2 diabetes mellitus with foot ulcer; L97.521 Non-pressure chronic ulcer of other part of left foot limited to breakdown of skin; L84 Corns and callosities; E11.40 Type 2 diabetes mellitus with diabetic neuropathy, unspecified; E78.5 Hyperlipidemia, unspecified; I10 Essential (primary) hypertension; Y83.5 Amputation of limb(s) as the cause of abnormal reaction of the patient, or of later complication, without mention of misadventure at the time of the procedure ==

== ENCOUNTER → 2018-01-11 | Outpatient (CLI) | payer OTHER | LOC: M.WC 14:00 | DX: T81.89XD Other complications of procedures, not elsewhere classified, subsequent encounter (principal); E11.621 Type 2 diabetes mellitus with foot ulcer; L97.511 Non-pressure chronic ulcer of other part of right foot limited to breakdown of skin; E11.40 Type 2 diabetes mellitus with diabetic neuropathy, unspecified; E78.5 Hyperlipidemia, unspecified; I10 Essential (primary) hypertension; Y83.8 Other surgical procedures as the cause of abnormal reaction of the patient, or of later complication, without mention of misadventure at the time of the procedure ==

== ENCOUNTER → 2018-01-18 | Outpatient (CLI) | payer OTHER | LOC: M.WC 03:02 | DX: T87.89 Other complications of amputation stump (principal); T81.89XD Other complications of procedures, not elsewhere classified, subsequent encounter; E11.621 Type 2 diabetes mellitus with foot ulcer; L97.512 Non-pressure chronic ulcer of other part of right foot with fat layer exposed; E11.69 Type 2 diabetes mellitus with other specified complication; M86.672 Other chronic osteomyelitis, left ankle and foot; E11.42 Type 2 diabetes mellitus with diabetic polyneuropathy; E78.5 Hyperlipidemia, unspecified; L84 Corns and callosities; I10 Essential (primary) hypertension; I87.2 Venous insufficiency (chronic) (peripheral); Y83.5 Amputation of limb(s) as the cause of abnormal reaction of the patient, or of later complication, without mention of misadventure at the time of the procedure; Y83.8 Other surgical procedures as the cause of abnormal reaction of the patient, or of later complication, without mention of misadventure at the time of the procedure ==

== ENCOUNTER → 2018-01-25 | Outpatient (CLI) | payer OTHER | LOC: M.WC 03:11 | DX: T87.89 Other complications of amputation stump (principal); E11.621 Type 2 diabetes mellitus with foot ulcer; L97.511 Non-pressure chronic ulcer of other part of right foot limited to breakdown of skin; L84 Corns and callosities; E11.69 Type 2 diabetes mellitus with other specified complication; M86.672 Other chronic osteomyelitis, left ankle and foot; E11.40 Type 2 diabetes mellitus with diabetic neuropathy, unspecified; E78.5 Hyperlipidemia, unspecified; I10 Essential (primary) hypertension; I87.2 Venous insufficiency (chronic) (peripheral); Y83.5 Amputation of limb(s) as the cause of abnormal reaction of the patient, or of later complication, without mention of misadventure at the time of the procedure ==

== ENCOUNTER → 2018-02-01 | Outpatient (CLI) | payer OTHER | LOC: M.WC 05:06 | DX: T87.89 Other complications of amputation stump (principal); E11.621 Type 2 diabetes mellitus with foot ulcer; L97.511 Non-pressure chronic ulcer of other part of right foot limited to breakdown of skin; L84 Corns and callosities; E11.42 Type 2 diabetes mellitus with diabetic polyneuropathy; E78.5 Hyperlipidemia, unspecified; I10 Essential (primary) hypertension; Y83.5 Amputation of limb(s) as the cause of abnormal reaction of the patient, or of later complication, without mention of misadventure at the time of the procedure ==

== ENCOUNTER → 2018-02-08 | Outpatient (CLI) | payer OTHER | LOC: M.WC 05:06 | DX: T87.89 Other complications of amputation stump (principal); E11.621 Type 2 diabetes mellitus with foot ulcer; L97.512 Non-pressure chronic ulcer of other part of right foot with fat layer exposed; L84 Corns and callosities; E11.69 Type 2 diabetes mellitus with other specified complication; M86.672 Other chronic osteomyelitis, left ankle and foot; E11.42 Type 2 diabetes mellitus with diabetic polyneuropathy; E78.5 Hyperlipidemia, unspecified; I10 Essential (primary) hypertension; Y83.5 Amputation of limb(s) as the cause of abnormal reaction of the patient, or of later complication, without mention of misadventure at the time of the procedure ==

== ENCOUNTER → 2018-02-15 | Outpatient (CLI) | payer OTHER | LOC: M.WC 03:22 | DX: E11.621 Type 2 diabetes mellitus with foot ulcer (principal); L97.512 Non-pressure chronic ulcer of other part of right foot with fat layer exposed; L84 Corns and callosities; E11.40 Type 2 diabetes mellitus with diabetic neuropathy, unspecified; E11.69 Type 2 diabetes mellitus with other specified complication; M86.672 Other chronic osteomyelitis, left ankle and foot; E78.5 Hyperlipidemia, unspecified; I10 Essential (primary) hypertension ==

== ENCOUNTER → 2018-02-22 | Outpatient (CLI) | payer OTHER | LOC: M.WC 04:34 | DX: E11.621 Type 2 diabetes mellitus with foot ulcer (principal); L97.512 Non-pressure chronic ulcer of other part of right foot with fat layer exposed; L84 Corns and callosities; E11.69 Type 2 diabetes mellitus with other specified complication; M86.672 Other chronic osteomyelitis, left ankle and foot; E11.42 Type 2 diabetes mellitus with diabetic polyneuropathy; E78.5 Hyperlipidemia, unspecified; I87.2 Venous insufficiency (chronic) (peripheral); I10 Essential (primary) hypertension; Z89.422 Acquired absence of other left toe(s) ==

== ENCOUNTER → 2018-03-01 | Outpatient (CLI) | payer OTHER ==
[2018-03-01 15:17] LABS: CALCIUM 8.9 mg/dL (8.5-10.1); CREATININE 1.4 mg/dL (0.6-1.3)
[2018-03-01 15:21] LABS: ALBUMIN 3.2 g/dL (3.4-5.0); TOTAL BILIRUBIN 0.3 mg/dL (<0.1-1.0)
== END ==
LOC: M.WC 02:51
PROVIDERS: Podiatrist Foot & Ankle Surgery
DX: E11.621 Type 2 diabetes mellitus with foot ulcer (principal); L97.512 Non-pressure chronic ulcer of other part of right foot with fat layer exposed; L84 Corns and callosities; E11.40 Type 2 diabetes mellitus with diabetic neuropathy, unspecified; E11.69 Type 2 diabetes mellitus with other specified complication; M86.672 Other chronic osteomyelitis, left ankle and foot; E78.5 Hyperlipidemia, unspecified; I10 Essential (primary) hypertension

== ENCOUNTER → 2018-03-08 | Outpatient (CLI) | payer OTHER | LOC: M.WC 04:41 | DX: E11.621 Type 2 diabetes mellitus with foot ulcer (principal); L97.512 Non-pressure chronic ulcer of other part of right foot with fat layer exposed; E11.69 Type 2 diabetes mellitus with other specified complication; M86.672 Other chronic osteomyelitis, left ankle and foot; E11.40 Type 2 diabetes mellitus with diabetic neuropathy, unspecified; E78.5 Hyperlipidemia, unspecified; I10 Essential (primary) hypertension; Z89.422 Acquired absence of other left toe(s) ==

== ENCOUNTER → 2018-03-15 | Outpatient (CLI) | payer OTHER | LOC: M.WC 01:54 | DX: E11.621 Type 2 diabetes mellitus with foot ulcer (principal); L97.516 Non-pressure chronic ulcer of other part of right foot with bone involvement without evidence of necrosis; L84 Corns and callosities; E11.69 Type 2 diabetes mellitus with other specified complication; M86.672 Other chronic osteomyelitis, left ankle and foot; E11.42 Type 2 diabetes mellitus with diabetic polyneuropathy; E78.5 Hyperlipidemia, unspecified; I10 Essential (primary) hypertension; Z89.422 Acquired absence of other left toe(s) ==

== ENCOUNTER → 2018-03-22 | Outpatient (CLI) | payer OTHER ==
[2018-03-22 15:13] LABS: ABSOLUTE BASOPHILS 0.1 thou/uL (0.0-0.2); ABSOLUTE EOSINOPHILS 0.2 thou/uL (0.0-0.7); ABSOLUTE LYMPHOCYTES 2.3 thou/uL (0.8-5.3); ABSOLUTE MONOCYTES 1.1 thou/uL (0.0-1.2); ABSOLUTE NEUTROPHILS 10.9 thou/uL (1.6-8.1); BASOPHILS 0.6 %; EOSINOPHILS 1.5 %; HEMATOCRIT 37.5 % (42.0-52.0); HEMOGLOBIN 12.2 gm/dL (14.0-18.0); LYMPHOCYTES 15.6 %; MCH 29.4 pg (26.0-34.0); MCHC 32.6 g/dL (28.0-37.0); MCV 90.2 fL (80.0-100.0); MONOCYTES 7.6 %; MPV 8.3 fl. (7.2-11.1); NUCLEATED RBCS 0 /100WBC; PLATELET COUNT* 240 thou/uL (150-400); POLYS 74.7 %; RBC 4.16 mil/uL (4.50-6.00); RDW-CV 13.9 % (10.5-14.5); WBC 14.6 thou/uL (4.0-11.0)
[2018-03-22 15:22] LABS: CALCIUM 9.1 mg/dL (8.5-10.1); POTASSIUM 4.5 mmol/L (3.5-5.1)
[2018-03-22 16:33] LABS: ESR (SEDRATE) 55 mm/hr (0-20)
== END ==
LOC: M.WC 13:54
PROVIDERS: Podiatrist Foot & Ankle Surgery
DX: E11.621 Type 2 diabetes mellitus with foot ulcer (principal); L89.893 Pressure ulcer of other site, stage 3; L97.512 Non-pressure chronic ulcer of other part of right foot with fat layer exposed; L84 Corns and callosities; E11.69 Type 2 diabetes mellitus with other specified complication; M86.672 Other chronic osteomyelitis, left ankle and foot; E11.610 Type 2 diabetes mellitus with diabetic neuropathic arthropathy; E11.42 Type 2 diabetes mellitus with diabetic polyneuropathy; E78.5 Hyperlipidemia, unspecified; I10 Essential (primary) hypertension; I87.2 Venous insufficiency (chronic) (peripheral); Z89.422 Acquired absence of other left toe(s)

== ENCOUNTER → 2018-03-29 | Outpatient (CLI) | payer OTHER | LOC: M.WC 02:15 | DX: E11.621 Type 2 diabetes mellitus with foot ulcer (principal); L97.512 Non-pressure chronic ulcer of other part of right foot with fat layer exposed; E11.40 Type 2 diabetes mellitus with diabetic neuropathy, unspecified; E78.5 Hyperlipidemia, unspecified; I10 Essential (primary) hypertension ==

== ENCOUNTER → 2018-04-12 | Outpatient (CLI) | payer OTHER | LOC: M.WC 04:57 | DX: E11.621 Type 2 diabetes mellitus with foot ulcer (principal); L97.512 Non-pressure chronic ulcer of other part of right foot with fat layer exposed; L84 Corns and callosities; E11.610 Type 2 diabetes mellitus with diabetic neuropathic arthropathy; E11.69 Type 2 diabetes mellitus with other specified complication; M86.672 Other chronic osteomyelitis, left ankle and foot; E11.42 Type 2 diabetes mellitus with diabetic polyneuropathy; E78.5 Hyperlipidemia, unspecified; I87.2 Venous insufficiency (chronic) (peripheral); I10 Essential (primary) hypertension ==

== ENCOUNTER → 2018-04-18 | Outpatient (CLI) | payer OTHER | LOC: M.MRI 10:38 | DX: S93.324A Dislocation of tarsometatarsal joint of right foot, initial encounter (principal); S91.301A Unspecified open wound, right foot, initial encounter; M86.8X7 Other osteomyelitis, ankle and foot; L03.115 Cellulitis of right lower limb; R60.0 Localized edema; X58.XXXA Exposure to other specified factors, initial encounter; Y93.89 Activity, other specified; Y92.89 Other specified places as the place of occurrence of the external cause; Y99.8 Other external cause status ==

== ENCOUNTER → 2018-04-19 | Outpatient (CLI) | payer OTHER ==
--- NOTE | 2018-04-20 11:57 | CON ---
[address] [address] CONSULTATION Name: ZENSHILPA Room: [facility] Carlos.#: [id number] Admission: 04/19/18 Attend Phys: Oneil Bradley DPM Discharge: Date of : 53 Report #: [id number] THIS REPORT FOR: //name// CC: Oneil Gentile DATE OF SERVICE: 04/19/2018 INFECTIOUS DISEASE CONSULTATION ATTENDING PHYSICIAN: Oneil Bradley MD. He is seen in the [facility], requests for evaluation suspected deep infection involving the right first MTP site medial plantar aspect. HISTORY OF PRESENT ILLNESS: Chart reviewed, the patient examined. This is a 62-year-old gentleman known to myself, has diabetes mellitus type 2, has had ongoing issues with lower extremity wounds and seen last fall for lateral left foot. Apparently, this healed. He, however, developed Charcot changes with first and second MTP lateral dislocations with prominence medially of the first MTP that has ulcerated and now has exposed bone. Recent culture was otherwise unrevealing. He has not been systemically ill. Denies any fevers or chills. Appetite has been fairly good. His blood sugars have been fairly well controlled. He has been undergoing wound care for the last several weeks without benefit of healing. ALLERGIES: Include SULFA. MEDICINES: ____, combination of glyburide and metformin, Lipitor, losartan, tamsulosin, insulin lispro, Lantus, fish oil, multivitamin and naproxen. PAST MEDICAL HISTORY: Includes diabetes mellitus, history of hypertension, hyperlipidemia and BPH. SOCIAL AND FAMILY HISTORY: Available on the chart. REVIEW OF SYSTEMS: Denies any significant pulmonary or gastrointestinal related complaints. Otherwise, 10-point review of systems is unremarkable with the exception noted above. PHYSICAL EXAMINATION: GENERAL: He is pleasant, alert and cooperative. He is not overtly distressed, appears to be generally well nourished. He is mildly obese. VITAL SIGNS: Stable. HEENT: Normocephalic. Extraocular muscles are intact. NECK: [place] [address] CONSULTATION Name: SHILPA ZALDIVAR Room: [facility]#: [id number] Admission: 04/19/18 Attend Phys: Oneil Bradley DPM Discharge: Date of : 53 Report #: [id number] LUNGS: Breathing is nonlabored. EXTREMITIES: Right foot medial aspect overlying the first MTP, there is exposed bone. There is mild discoloration at that site. There is really not significant amount of inflammation noted superficially or at the margins. There is no particular odor and no purulence. Based on discussion with Dr. Bradley, it was decided that he would get some bone for culture. He did take a rongeur and removed the cortex. He sent some to the pathologist and some to microbiology as well. It bled quite nicely. He noted the hardness of the bone appeared to be quite good. Suspected osteomyelitis involving the head of the first metatarsophalangeal joint on the right. I did leave instructions to go ahead and place a PICC line. We will restart vancomycin based on previous cultures. He has had some Staphylococcus in the past and see how he does pending the results of the culture and also the pathology. He will require a minimum of 2 weeks of parenteral therapy perhaps up to [address] Bradley. <ELECTRONICALLY SIGNED> By: Blayne Randolph MD 04/20/18 1157 0805 0859Jogarry Randolph MD /nt
--- NOTE | 2018-04-21 18:06 | PATH ---
[address] [address] PATHOLOGY RPT PROCEDURE Name: SHILPA ZALDIVAR Room: [facility] Arpan#: [id number] Admission: 04/19/18 Date of : 53 Discharge: Report #: [id number] Path Case #: [id number] [facility] Accession Number: [id number] . 01 Material submitted: . BONE BIOPSY, RIGHT FOOT . 01 Clinical history: . None provided . 02 Diagnosis: Bone biopsy, right foot: - Benign osteocartilaginous segments with prominent osteomyelitis. . (AMADOU:at;04/21/2018) QTA/04/21/2018 . 02 Electronically signed: . Owen Canseco MD, Pathologist NPI- [id number] . 01 Gross description: . Received in formalin labeled "Shilpa Zaldivar R foot," are three fragments of granular, arias-brown bone ranging from 0.3 x 0.2 x 0.1 cm to 1.1 x 0.5 x 0.5 cm in greatest dimensions. The largest fragment is bisected, and the specimen is submitted entirely in cassette A1, following decalcification. Partial fragmentation occurred upon sectioning. (DAC; 04/20/2018) XDC/XDC . 02 Pathologist provided ICD-10: M86.8X7 . 02 CPT . 440332, 716739 Specimen Comment: A courtesy copy of this report has been sent to Specimen Comment: [phone], . Specimen Comment: Report sent to / DR ADAMS Performed at: [address], [place], [place] [id number] MD Emile Raya MD Phone: [phone] Performed at: 02 [facility] [address], [place], [place] [id number] MD Owen Canseco MD Phone: [phone]
== END ==
LOC: M.WC 04:01
DX: E11.621 Type 2 diabetes mellitus with foot ulcer (principal); L89.893 Pressure ulcer of other site, stage 3; L97.516 Non-pressure chronic ulcer of other part of right foot with bone involvement without evidence of necrosis; L84 Corns and callosities; E11.69 Type 2 diabetes mellitus with other specified complication; M86.672 Other chronic osteomyelitis, left ankle and foot; E11.42 Type 2 diabetes mellitus with diabetic polyneuropathy; E11.610 Type 2 diabetes mellitus with diabetic neuropathic arthropathy; E66.9 Obesity, unspecified; E78.5 Hyperlipidemia, unspecified; I10 Essential (primary) hypertension; Z68.41 Body mass index [BMI] 40.0-44.9, adult; Z89.422 Acquired absence of other left toe(s)

== ENCOUNTER → 2018-04-20 | Outpatient (CLI) | payer OTHER ==
[~2018-04-20] VITALS: Ht 180.3 cm; Wt 142.4 kg
[2018-04-20 12:15] VITALS: BP 177/69
== END ==
LOC: M.INFUS 11:00
DX: S91.104A Unspecified open wound of right lesser toe(s) without damage to nail, initial encounter (principal); X58.XXXA Exposure to other specified factors, initial encounter

== ENCOUNTER → 2018-04-26 | Outpatient (CLI) | payer OTHER ==
--- NOTE | ~2018-04-26 | CON ---
[address] [address] CONSULTATION Name: ZENSHILPA Room: [facility] TRAY Winchester.John.#: [id number] Admission: 04/26/18 Attend Phys: Oneil Bradley DPM Discharge: Date of : 53 Report #: [id number] THIS REPORT FOR: //name// CC: Oneil Gentile DATE OF SERVICE: 04/28/2018 ATTENDING PHYSICIAN: Oneil Bradley DPM. Seen in the [facility] at [place], [place]. HISTORY OF PRESENT ILLNESS: The patient returns in followup chronic wound involving his right foot overlying the first MTP site, medial plantar aspect. He had undergone a debridement including bone last visit. Path report did confirm osteomyelitis changes, culture with growth of Serratia marcescens. He was previously empirically treated with vancomycin and this was changed to ceftriaxone 2 grams daily, which he is receiving on an ongoing basis. Generally, he does not complain of significant localizing or systemic type illness. At this point, on evaluation, still had exposed bone. This was debrided by Dr. Bradley. Had blood easily. Post-debridement, there was apparent hard bone at the site. Osteomyelitis involving the first MTP site. We will continue therapy with ceftriaxone 2 grams IV daily at least for the next couple of weeks. There is some discussion about possible amputation. It is notable that Charcot changes in actually first and second MTP have been dislocated laterally leading to really nonfunctioning great toe at this point. We will continue weekly labs as well. We will see him back in ongoing efforts to heal and be available in the event of decision about amputation. By: 1105 [id number] Randolph MD /nt
== END ==
LOC: M.WC 05:21
DX: E11.621 Type 2 diabetes mellitus with foot ulcer (principal); L89.893 Pressure ulcer of other site, stage 3; L97.516 Non-pressure chronic ulcer of other part of right foot with bone involvement without evidence of necrosis; L84 Corns and callosities; E11.610 Type 2 diabetes mellitus with diabetic neuropathic arthropathy; E11.42 Type 2 diabetes mellitus with diabetic polyneuropathy; E11.69 Type 2 diabetes mellitus with other specified complication; M86.672 Other chronic osteomyelitis, left ankle and foot; E66.9 Obesity, unspecified; E78.5 Hyperlipidemia, unspecified; I10 Essential (primary) hypertension; Z68.41 Body mass index [BMI] 40.0-44.9, adult

== ENCOUNTER → 2018-05-17 | Outpatient (CLI) | payer OTHER | LOC: M.WC 05:02 | DX: E11.621 Type 2 diabetes mellitus with foot ulcer (principal); L97.512 Non-pressure chronic ulcer of other part of right foot with fat layer exposed; L89.893 Pressure ulcer of other site, stage 3; L84 Corns and callosities; E11.69 Type 2 diabetes mellitus with other specified complication; M86.672 Other chronic osteomyelitis, left ankle and foot; E11.610 Type 2 diabetes mellitus with diabetic neuropathic arthropathy; E11.42 Type 2 diabetes mellitus with diabetic polyneuropathy; E78.5 Hyperlipidemia, unspecified; I87.2 Venous insufficiency (chronic) (peripheral); I10 Essential (primary) hypertension; Z89.411 Acquired absence of right great toe ==

== ENCOUNTER → 2018-05-24 | Outpatient (CLI) | payer OTHER ==
--- NOTE | 2018-05-26 07:55 | CON ---
[address] [address] CONSULTATION Name: ZENSHILPA Room: [facility] TRAY Antony#: [id number] Admission: 05/24/18 Attend Phys: Oneil Bradley DPM Discharge: Date of : 53 Report #: [id number] THIS REPORT FOR: //name// CC: Oneil Gentile DATE OF SERVICE: 05/24/2018 INFECTIOUS DISEASE CONSULTATION FOLLOWUP Here for followup of right foot chronic wound overlying the medial plantar aspect of the first metatarsophalangeal joint with exposed bone. The patient returns for followup. He is undergoing treatment with ceftriaxone, most recent culture had Gram-negative. Clinically, he has been stable over the course of the last several weeks. He denies any significant systemic illness. He does not have peripheral neuropathy and therefore, no significant discomfort. He has been tolerating the ceftriaxone without difficulty. ASSESSMENT AND PLAN: Chronic osteomyelitis. At this point, decision has been made to go ahead and do the transmetatarsal amputation since the metatarsals have been dislocated and really it is nonfunctional set of toes at this point. We will continue the ceftriaxone. Tentative surgery planned for about 2 weeks. We will see him as required. <ELECTRONICALLY SIGNED> By: Blayne Randolph MD 05/26/18 0755 0855 0208Josechiqui Randolph MD /nt
== END ==
LOC: M.WC 04:38
DX: E11.621 Type 2 diabetes mellitus with foot ulcer (principal); L89.893 Pressure ulcer of other site, stage 3; L97.512 Non-pressure chronic ulcer of other part of right foot with fat layer exposed; L84 Corns and callosities; E11.69 Type 2 diabetes mellitus with other specified complication; M86.672 Other chronic osteomyelitis, left ankle and foot; E11.610 Type 2 diabetes mellitus with diabetic neuropathic arthropathy; E11.42 Type 2 diabetes mellitus with diabetic polyneuropathy; E78.5 Hyperlipidemia, unspecified; I87.2 Venous insufficiency (chronic) (peripheral); I10 Essential (primary) hypertension; Z89.422 Acquired absence of other left toe(s)

== ENCOUNTER → 2018-05-31 | Outpatient (CLI) | payer OTHER | LOC: M.WC 05:28 | DX: E11.621 Type 2 diabetes mellitus with foot ulcer (principal); L97.511 Non-pressure chronic ulcer of other part of right foot limited to breakdown of skin; L89.893 Pressure ulcer of other site, stage 3; E11.610 Type 2 diabetes mellitus with diabetic neuropathic arthropathy; E11.40 Type 2 diabetes mellitus with diabetic neuropathy, unspecified; E11.69 Type 2 diabetes mellitus with other specified complication; M86.672 Other chronic osteomyelitis, left ankle and foot; E78.5 Hyperlipidemia, unspecified; I10 Essential (primary) hypertension; Z89.422 Acquired absence of other left toe(s) ==

== ENCOUNTER 2018-06-06 06:07 | Observation (INO) | payer OTHER ==
[~2018-06-06] VITALS: Ht 152.4 cm; Wt 145.1 kg
--- NOTE | ~2018-06-06 | OP ---
[address] [address] OPERATIVE REPORT Name: ZENSHILPA Room: [address] M.RNancy#: [id number] Admission: 06/06/18 Attend Phys: Minh Pearson Discharge: Date of : 53 Report #: [id number] THIS REPORT FOR: //name// CC: Oneil Londono DATE OF SERVICE: 06/06/2018 SURGEON: Oneil Bradley DPM PREOPERATIVE DIAGNOSES: 1. Osteomyelitis, right distal first metatarsal with nonhealing ulceration. 2. Charcot arthropathy, right foot. PROCEDURE: 1. Resection right distal first metatarsal and hallux. 2. Amputation, right first, second, third, fourth and fifth toes. 3. Resection right distal second and fifth metatarsal heads. 4. Pedicled skin flap, right foot. ANESTHESIA: MAC. INJECTABLES: 30 mL of a 1:1 mixture of 0.5% Marcaine plain and 1% lidocaine plain preoperatively and 20 mL of 0.5% Marcaine plain postoperatively. ESTIMATED BLOOD LOSS: Minimal. HEMOSTASIS: Right ankle pneumatic tourniquet at 300 mmHg. SPECIMENS: Right first through fifth toes, right distal first metatarsal, distal second and fifth metatarsals and sesamoids. CULTURES: 1. Bone, right first metatarsal, aerobic and anaerobic. 2. Soft tissue, right foot, aerobic and anaerobic. SUTURES: 2-0 nylon, 3-0 nylon. COMPLICATIONS: None. DESCRIPTION OF PROCEDURE: The patient was brought to the OR and placed on the table supine with induction of MAC anesthesia. A well-padded right ankle pneumatic tourniquet was placed and a local anesthetic block was given to the foot. The extremity was prepped and draped aseptically, was then exsanguinated with inflation of the tourniquet. A #10 blade [place] [address] OPERATIVE REPORT Name: SHILPA ZALDIVAR Room: [address] M.R.#: [id number] Admission: 06/06/18 Attend Phys: Minh Pearson Discharge: Date of : 53 Report #: [id number] circumferential incision around the first through fifth toes with layered anatomic dissection to disarticulate the toes at the metatarsophalangeal joints. The incision was carried proximally along the distal first metatarsal with reflection of the soft tissue envelope off the first metatarsal. The distal first metatarsal was discolored with a brown/grayish discoloration and was soft with lysis at the medial and lateral aspect of the metatarsal head. I transected the first metatarsal at the proximal aspect and sent it for pathology. A patient relations representative portion of the distal first metatarsal was sent for aerobic and anaerobic bone cultures. The sesamoids were removed as well for pathology. The distal second and fifth metatarsals were resected to create a more parabolic metatarsal contour. He had an equinovarus deformity with increased pressure to the plantar fifth metatarsal head. The extensor and flexor tendons were transected as well as some soft tissue removed to facilitate wound closure. Electrocautery was utilized for hemostasis, and the wound was flushed with sterile saline. The skin margins were remodeled to facilitate mobilization of the plantar skin flap dorsally. The plantar skin flap was mobilized dorsally and sutured with 2-0 and 3-0 nylon in simple interrupted fashion. The entire surgical wound was closed. The foot was cleansed and dried and the tourniquet was deflated with normal vascular return. A sterile compressive bandage with Betadine-soaked Adaptic, fluffs, ABDs, Kerlix and Ramez wrap were applied. The patient left the OR alert and oriented with no pain or complications noted. By: 0941 [id number] Bradley DPM /kajal
[2018-06-06 06:30] LABS: HEMATOCRIT 38.3 % (42.0-52.0); HEMOGLOBIN 12.5 gm/dL (14.0-18.0); MCH 28.9 pg (26.0-34.0); MCHC 32.7 g/dL (28.0-37.0); MCV 88.4 fL (80.0-100.0); MPV 8.7 fl. (7.2-11.1); RBC 4.33 mil/uL (4.50-6.00); RDW-CV 14.7 % (10.5-14.5)
[2018-06-06 06:42] LABS: ALBUMIN 3.3 g/dL (3.4-5.0); CALCIUM 9.4 mg/dL (8.5-10.1); CREATININE 1.2 mg/dL (0.6-1.3); POTASSIUM 3.5 mmol/L (3.5-5.1); TOTAL BILIRUBIN 0.3 mg/dL (<0.1-1.0); TOTAL PROTEIN 7.7 g/dL (6.4-8.2)
[2018-06-06 07:30] VITALS: BP 148/78
[2018-06-06 09:59] VITALS: BP 159/83
[2018-06-06 16:30] VITALS: BP 144/80
--- NOTE | 2018-06-06 17:10 | EKG ---
[place] [address] ELECTROCARDIOGRAM REPORT Name: MADISYNSHILPA Gilman Room: [address] M.R.#: [id number] Admission: 06/06/18 Attend Phys: Minh Pearson Discharge: Date of : 53 Report #: [id number] THIS REPORT FOR: //name// [facility] Test Date: 2018-06-06 Test Time: 06:30:34 Pat Name: SHILPA ZALDIVAR Department: Room: [facility] Gender: M Mill Machinist: TD : 1955 Requested By: Oneil Bradley Order Number: [id number] Shirley MD: Allen Herring Measurements Intervals [place] Rate: 78 P: 3 MN: 171 QRS: -29 QRSD: 99 T: 29 QT: 379 QTc: 432 Interpretive Statements Sinus rhythm Borderline left axis deviation Compared to ECG 11/09/2017 13:56:51 No significant changes Electronically Signed On 06-06-2018 17:10:00 CDT by Allen Herring [email or web address] <ELECTRONICALLY SIGNED> By: Allen Herring MD, [facility] 06/06/181709 9 9 Allen Herring MD, FAC /EPI
--- NOTE | 2018-06-06 19:17 | NUR ---
PT REMAINED A&Ox4 THROUGHOUT SHIFT. VITALS STABLE. DRESSING IN PLACE AND CLEAN, DRY AND INTACT. PICC IN UPPER R ARM PATENT, SL. WEIGHT BEARING STATUS MAINTAINED TO HEAL ONLY ON R SIDE. CARB CONTROL DIET TOLERATED. PAIN CONTROLLED WITH NORCO. CALL LIGHT WITHIN REACH. FALL PRECAUTIONS IN PLACE. HOURLY ROUNDING COMPLETE
[2018-06-07 00:04] VITALS: BP 161/71
[2018-06-07 05:00] VITALS: BP 170/79
--- NOTE | 2018-06-07 05:58 | CON ---
[address] [address] CONSULTATION Name: ZENSHILPA Room: [address] M.R.#: [id number] Admission: 06/06/18 Attend Phys: Minh Pearson Discharge: Date of : 53 Report #: [id number] THIS REPORT FOR: //name// CC: Oneil Londono DATE OF SERVICE: 06/06/2018 ATTENDING PHYSICIAN: Dr. Londono. REASON FOR EVALUATION: Osteomyelitis involving the right first metatarsal head. HISTORY OF PRESENT ILLNESS: Chart reviewed, the patient examined. This is a 62-year-old, well known to myself, [facility] with Dr. Bradley, has diabetes mellitus that has been complicated by some peripheral neuropathy, has got Charcot changes, had a previous left fifth ray amputation back in 10/2017, developed several dislocations involving the first, second, third, and fourth digits on the right foot, developed an ulceration over the medial plantar aspect of the first metatarsophalangeal joint. This has been [facility]br[facility] in [facility], was felt to have chronic osteomyelitis and not likely to heal due to the severe Charcot arthropathy change of the foot, felt that the toes were essentially nonfunctional and underwent transmetatarsal amputation. He did well initially postop with no complaints at this point. Previous cultures had a variety of organisms, most recently Serratia marcescens. He has been on long-term parenteral therapy with ceftriaxone pending his decision about amputation. He has not had recent fevers. Appetite has been good. No pulmonary-related complaints. ALLERGIES: SULFA. CURRENT MEDICATIONS: Include ceftriaxone, fish oil, losartan, tamsulosin, insulin, Cipro, atorvastatin, glyburide, metformin. PAST MEDICAL HISTORY: As noted above, diabetes mellitus type 2 complicated by peripheral neuropathy, has Charcot changes, history of hypertension, high cholesterol, psoriasis. SOCIAL HISTORY: Nonsmoker, no ethanol. FAMILY HISTORY: Noncontributory. REVIEW OF SYSTEMS: Denies any pulmonary or gastrointestinal complaints. Otherwise, 10-point review of systems unremarkable except as noted above. PHYSICAL EXAMINATION: [place] [address] CONSULTATION Name: SHILPA ZALDIVAR Room: [address]#: [id number] Admission: 06/06/18 Attend Phys: Minh Pearson Discharge: Date of : 53 Report #: [id number] GENERAL: He is alert, cooperative, appropriate. He is not overtly distressed. He appears to be well nourished. VITAL SIGNS: Temperature 97.7, pulse 72, respirations 16, blood pressure 159/83. SKIN: Warm and dry. HEENT: Normocephalic. Extraocular muscles intact. NECK: Supple. LUNGS: Clear to auscultation. HEART: Regular rate and rhythm without murmur. ABDOMEN: Soft. He is obese, nontender. There are no peritoneal signs. GENITOURINARY: Deferred. RECTAL: Deferred. EXTREMITIES: Distal lower extremity on the right has a large surgical dressing that was not disturbed. LABORATORY AND X-RAY DATA: Preop CBC: White count of 13.0, H and H 12.5 and 38.3, platelets of 313. Electrolytes: Sodium 137, potassium 3.5, chloride 103, bicarbonate 29, anion gap of 5, BUN and creatinine 24 and 1.2, glucose of 81. LFTs unremarkable. Albumin of 3.3. Total protein 7.7. Estimated GFR of 61. ASSESSMENT: Post-transmetatarsal amputation, likely chronic osteomyelitis involving the distal aspect of the first metatarsal. We will continue the ceftriaxone as prescribed. Await the results including culture, the path report. Given the long preop course of therapy, will likely need abbreviated courses postop. We will discuss with Dr. Bradley. <ELECTRONICALLY SIGNED> By: Blayne Randolph MD 06/07/18 0558 1400 09Jogarry Randolph MD /nt
[2018-06-07 08:00] VITALS: BP 179/71
[2018-06-07 10:19] VITALS: BP 170/79
--- NOTE | 2018-06-07 12:00 | NUR ---
PT.DISCHARGED TODAY. 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
--- NOTE | 2018-06-07 15:15 | NUR ---
ORDER RECEIVED AND CHART REVIEWED. PATIENT DC'ED PRIOR TO P.T. EVALUATION. CAMILLA WRIGHT, MPT
--- NOTE | 2018-06-13 11:08 | PATH ---
[address] [address] PATHOLOGY RPT PROCEDURE Name: ZENSHILPA Room: [address] Lien Antony#: [id number] Admission: 06/06/18 Date of : 53 Discharge: 06/07/18 Report #: [id number] Path Case #: [id number] [facility] Accession Number: [id number] . 01 Material submitted: . RIGHT FIRST METATARSAL, RIGHT 5TH METATARSAL, TOES 1-5 AND SESAMOID . 01 Clinical history: . Osteomyelitis right foot Stitch marked right 5th metatarsal . 02 Diagnosis: Right first metatarsal, right fifth metatarsal, toes 1-5 and sesamoid: - Multiple portions of right forefoot including five toes as well as four additional bony / soft tissue segments consistent with tissues including first and fifth metatarsals and sesamoid bone, with several toe ulcerations, and foci of osteomyelitis including fifth digit and segment of probable first metatarsal bone. . (AMADOU:mml; 06/09/2018) QLM/06/09/2018 . 02 Comment: Focal osteomyelitis is seen in the segment of bone thought likely to be the first metatarsal, near the articular end (A4) and the opposite margin is free of involvement. Osteomyelitis is also seen in bone of the fifth digit (A11) and the proximal articular margin is free of involvement. . (AMADOU:nishi; 06/09/2018) . 02 Electronically signed: . Owen Canseco MD, Pathologist NPI- [id number] . 01 Gross description: . The specimen is received in formalin, labeled "AlannaShilpa baker, right first metatarsal, right fifth metatarsal, toes: 1, 2, 3, 4 and 5 and sesamoid, and as per requisition, right fifth metatarsal (stitch marked)", are multiple segments of a right forefoot consisting of hallux measuring 6.0 cm from proximal skin resection margin to distal tip and up to 3.4 cm in width. Extending above the soft tissue resection margin is a portion of bone covered by arias-white soft tissue measuring 0.8 cm in length by 2.0 x 1.7 cm. The bone margin shows a concave baez-white articular cartilage. The skin and bone margin appear viable. The probable first metatarsal bone measures 4.7 cm in length and up to 2.0 cm in diameter, with a smooth bone margin and the opposite convex,covered by baez-white articular cartilage with a defect measuring 1.5 x 1.2 cm, exposing arias hemorrhagic bone. The next segment, consists of digits 2, 3 [place] [address] PATHOLOGY RPT PROCEDURE Name: SHILPA ZALDIVAR Room: [address] Lien M.R.#: [id number] Admission: 06/06/18 Date of : 53 Discharge: 06/07/18 Report #: [id number] Path Case #: [id number] and 4 that measures 4.5 cm from the skin resection margin to distal tip and 5.2 x 2.2 cm. Extending above the skin resection margin are three segments of bone measuring 1.5 cm in length with the proximal bone 1.1 x 1.0 cm (digit #2), 0.7 cm length with the proximal bone, 0.7 x 0.6 cm (digit #3) and 1.4 cm in length with the proximal bone 1.0 x 0.7 cm (digit #4). The bone margins are composed of a concave baez-white articular cartilage. The skin and bone margins appear viable. The fifth digit measures 3.3 cm in length from proximal skin resection margin to distal tip and up to 1.7 cm in width. Extending above the skin resection margin is a portion of bone measuring 1.2 cm in length with the proximal bone girth of 1.1 x 1.0 cm. The bone margin consists of a concave baez-white articular cartilage. The skin and bone margins appear viable. The sutured bone designated as right metatarsal measures 1.5 x 1.0 x 1.0 cm and shows a smooth arias, trabeculated bone margin with the opposite convex, baez-white articular cartilage. The last segement of possible sesamoid is covered by arias brown soft tissue and measures 4.0 x 3.0 x 1.4 cm. One end shows irregular arias yellow bone with the opposite consisting of arias-white rubbery soft tissue. There are two possible ulcers , the largest, on dorsal skin of fifth digit measuring 2.3 x 0.4 cm that is 1.1 cm from the proximal skin margin. The second possible ulcer is on plantar skin on the lateral aspect of digit #2. Sectioning through these ulcers show a necrotic underlying soft tissue with possible extension to the underlying bone. All the digits have baez-white, crusted toenails. Digits #1, 2, and 4, sutured metatarsal head, and other separate bones do not show a discrete ulcer-like, necrotic lesion. All bones are submitted after decalcification. . [employer] tissue is submitted as follows: A1. Proximal margin, first digit, skin inked green A2. Proximal margin, first digit, bone inked blue A3. Proximal margin, probable first metatarsal, inked blue A4. Distal margin, probable first metatarsal A5. Proximal margins, second digit (skin inked green, bone inked blue) A6. Third digit, ulcer A7-A8. Third digit ulcer to proximal skin and bone margins, bisected (red ink at intersection) A9. Proximal margins, Fourth digit (skin inked green, bone inked blue) A10-A11. Fifth digit, distal tip to proximal margins including dorsal ulcer A12. Fifth metatarsal, oriented with suture, perpendicular section A13. Additionally received possible metatarsal, perpendicular bisected A14. Bone margin, additionally received possible sesamoid bone A15. Soft tissue margin, additionally received possible sesamoid bone (SWS; 06/06/2018) SHS/SHS . 02 Pathologist provided ICD-10: M86.8X7, L97.519 . 02 [place] [address] PATHOLOGY RPT PROCEDURE Name: SHILPA ZALDIVAR Room: [address] Lien MBritton#: [id number] Admission: 06/06/18 Date of : 53 Discharge: 06/07/18 Report #: [id number] Path Case #: [id number] CPT . 907549, 259118 Specimen Comment: A courtesy copy of this report has been sent to Specimen Comment: [phone], , . Specimen Comment: Report sent to ,DR GRANT / DR ADAMS Specimen Comment: A duplicate report has been generated due to demographic updates. Performed at: [address] [facility] [id number] [facility] [address], [place], [place] [id number] MD Emile Raya MD Phone: [phone] Performed at: [facility] [address], [place], [place] [id number] MD Owen Canseco MD Phone: [phone]
== END 2018-06-07 10:35 | disposition home or self-care (01) ==
LOC: M.SUR 06:07 → M.ORTHSURG 09:56 → M.SUR 15:56 → M.ORTHSURG 06-07 10:35
PROVIDERS: Podiatrist Foot & Ankle Surgery; ADMIT Internal Medicine
DX: M86.8X7 Other osteomyelitis, ankle and foot (principal); E66.9 Obesity, unspecified; R65.10 Systemic inflammatory response syndrome (SIRS) of non-infectious origin without acute organ dysfunction; E78.5 Hyperlipidemia, unspecified; N40.0 Benign prostatic hyperplasia without lower urinary tract symptoms; E11.42 Type 2 diabetes mellitus with diabetic polyneuropathy; L40.9 Psoriasis, unspecified; I10 Essential (primary) hypertension; E78.00 Pure hypercholesterolemia, unspecified; Z88.2 Allergy status to sulfonamides

== ENCOUNTER → 2018-06-14 | Outpatient (CLI) | payer OTHER ==
--- NOTE | 2018-06-16 07:55 | CON ---
[address] [address] CONSULTATION Name: SHILPA ZALDIVAR Room: [facility] TRAY Gonzalez.#: [id number] Admission: 06/14/18 Attend Phys: Oneil Bradley DPM Discharge: Date of : 53 Report #: [id number] THIS REPORT FOR: //name// CC: Oneil Gentile DATE OF SERVICE: 06/15/2018 INFECTIOUS DISEASE CONSULTATION: HISTORY OF PRESENT ILLNESS: Here for followup hospitalization. He underwent right transmetatarsal amputation for chronic osteomyelitis that was confirmed in 2 sites, the distal first metatarsal and the lateral fifth digit. Culture showed evidence of coag negative Staph. It was somewhat resistant including an ROLDAN to vancomycin equal to 4. He generally has been doing well. On examination, the incision line is intact. There is mild degree of inflammation. There is no actual excessive drainage. Denies any significant pain. Overall, there is degree of edema that is probably 2+ in the distal lower extremity. On questioning, he denies any systemic illness, no fevers. He has been receiving ceftriaxone in the postop week. Chronic osteomyelitis. At this point, would go ahead and maintain line, stop the ceftriaxone. We will start combination therapy with oral doxycycline as well as rifampin. He had coag negative, so this is susceptible to both. We will see him on a weekly basis. If he continues to improve, likely remove the PICC line next week. <ELECTRONICALLY SIGNED> By: Blayne Randolph MD 06/16/18 0755 [id number] [id number] Randolph MD /nt
== END ==
LOC: M.WC 04:14
DX: T87.89 Other complications of amputation stump (principal); E11.40 Type 2 diabetes mellitus with diabetic neuropathy, unspecified; E11.69 Type 2 diabetes mellitus with other specified complication; M86.672 Other chronic osteomyelitis, left ankle and foot; E11.610 Type 2 diabetes mellitus with diabetic neuropathic arthropathy; E66.01 Morbid (severe) obesity due to excess calories; E78.5 Hyperlipidemia, unspecified; L84 Corns and callosities; I87.2 Venous insufficiency (chronic) (peripheral); I10 Essential (primary) hypertension; Y83.5 Amputation of limb(s) as the cause of abnormal reaction of the patient, or of later complication, without mention of misadventure at the time of the procedure

== ENCOUNTER → 2018-06-21 | Outpatient (CLI) | payer OTHER ==
[2018-06-21 15:08] LABS: ABSOLUTE BASOPHILS 0.1 thou/uL (0.0-0.2); ABSOLUTE EOSINOPHILS 0.7 thou/uL (0.0-0.7); ABSOLUTE LYMPHOCYTES 2.4 thou/uL (0.8-5.3); ABSOLUTE MONOCYTES 0.9 thou/uL (0.0-1.2); ABSOLUTE NEUTROPHILS 9.1 thou/uL (1.6-8.1); BASOPHILS 0.9 %; HEMATOCRIT 36.1 % (42.0-52.0); LYMPHOCYTES 18.2 %; MCHC 33.2 g/dL (28.0-37.0); MCV 87.2 fL (80.0-100.0); MONOCYTES 6.5 %; MPV 7.8 fl. (7.2-11.1); NUCLEATED RBCS 0 /100WBC; PLATELET COUNT* 427 thou/uL (150-400); POLYS 69.4 %; RBC 4.14 mil/uL (4.50-6.00); RDW-CV 14.5 % (10.5-14.5); WBC 13.1 thou/uL (4.0-11.0)
[2018-06-21 15:21] LABS: CALCIUM 9.7 mg/dL (8.5-10.1); CREATININE 1.4 mg/dL (0.6-1.3); POTASSIUM 4.2 mmol/L (3.5-5.1); TOTAL BILIRUBIN 0.3 mg/dL (<0.1-1.0); TOTAL PROTEIN 8.5 g/dL (6.4-8.2)
[2018-06-21 16:13] LABS: ESR (SEDRATE) 88 mm/hr (0-20)
== END ==
LOC: M.WC 05:39
PROVIDERS: Podiatrist Foot & Ankle Surgery
DX: T87.89 Other complications of amputation stump (principal); E11.40 Type 2 diabetes mellitus with diabetic neuropathy, unspecified; E11.69 Type 2 diabetes mellitus with other specified complication; M86.672 Other chronic osteomyelitis, left ankle and foot; E11.610 Type 2 diabetes mellitus with diabetic neuropathic arthropathy; E78.5 Hyperlipidemia, unspecified; I10 Essential (primary) hypertension; L84 Corns and callosities; Y83.5 Amputation of limb(s) as the cause of abnormal reaction of the patient, or of later complication, without mention of misadventure at the time of the procedure

== ENCOUNTER → 2018-07-05 | Outpatient (CLI) | payer OTHER ==
[2018-07-05 15:45] LABS: ABSOLUTE BASOPHILS 0.1 thou/uL (0.0-0.2); ABSOLUTE EOSINOPHILS 0.6 thou/uL (0.0-0.7); ABSOLUTE LYMPHOCYTES 2.7 thou/uL (0.8-5.3); ABSOLUTE NEUTROPHILS 7.8 thou/uL (1.6-8.1); BASOPHILS 0.5 %; EOSINOPHILS 4.5 %; HEMATOCRIT 39.4 % (42.0-52.0); HEMOGLOBIN 12.9 gm/dL (14.0-18.0); LYMPHOCYTES 22.1 %; MCH 28.7 pg (26.0-34.0); MCHC 32.8 g/dL (28.0-37.0); MCV 87.5 fL (80.0-100.0); MONOCYTES 8.3 %; MPV 8.7 fl. (7.2-11.1); NUCLEATED RBCS 0 /100WBC; PLATELET COUNT* 276 thou/uL (150-400); POLYS 64.6 %; RDW-CV 15.5 % (10.5-14.5); WBC 12.2 thou/uL (4.0-11.0)
[2018-07-05 16:05] LABS: CALCIUM 10.2 mg/dL (8.5-10.1); POTASSIUM 4.7 mmol/L (3.5-5.1)
[2018-07-05 16:49] LABS: ESR (SEDRATE) 30 mm/hr (0-20)
--- NOTE | 2018-07-06 12:56 | CON ---
[address] [address] CONSULTATION Name: SHILPA ZALDIVAR Room: [facility] TRAY Antony#: [id number] Admission: 07/05/18 Attend Phys: Oneil Bradley DPM Discharge: Date of : 53 Report #: [id number] THIS REPORT FOR: //name// CC: Oneil Gentile DATE OF SERVICE: 07/05/2018 INFECTIOUS DISEASE CONSULTATION He is seen at the [facility] at [place], [place]. HISTORY OF PRESENT ILLNESS: Chart reviewed, the patient examined. The patient returns today in followup. He is roughly 4 weeks post transmetatarsal amputation that was one of several surgeries. At this point, he is generally doing well. He denies any significant operative site-related complaints. He has not been systemically ill. He denies any fevers or chills. Appetite has been good. PHYSICAL EXAMINATION: On evaluation, the wound is sutured with eschar at the time of the visit. Dr. Bradley did remove the sutures and there was a mild dehiscence over the first metatarsal amputation site. He is on combination therapy with rifampin as well as minocycline, completed roughly 3 weeks. ASSESSMENT AND PLAN: Chronic osteomyelitis at 2 sites post aggressive surgical debridement including amputation. We will continue current therapy as prescribed in additional one week. I did review his lab, which was generally unremarkable at this point, with a normal creatinine. LFTs were normal as well. We will see him in 2 weeks.. <ELECTRONICALLY SIGNED> By: Blayne Randolph MD 07/06/18 1256 1725 [id number] Randolph MD /nt
== END ==
LOC: M.WC 05:07
PROVIDERS: Podiatrist Foot & Ankle Surgery
DX: T87.89 Other complications of amputation stump (principal); L03.116 Cellulitis of left lower limb; E11.69 Type 2 diabetes mellitus with other specified complication; M86.672 Other chronic osteomyelitis, left ankle and foot; E11.42 Type 2 diabetes mellitus with diabetic polyneuropathy; E11.610 Type 2 diabetes mellitus with diabetic neuropathic arthropathy; E66.01 Morbid (severe) obesity due to excess calories; E78.5 Hyperlipidemia, unspecified; I87.2 Venous insufficiency (chronic) (peripheral); I10 Essential (primary) hypertension; Y83.5 Amputation of limb(s) as the cause of abnormal reaction of the patient, or of later complication, without mention of misadventure at the time of the procedure

== ENCOUNTER → 2018-07-12 | Outpatient (CLI) | payer OTHER | LOC: M.WC 05:05 | DX: T87.89 Other complications of amputation stump (principal); E11.621 Type 2 diabetes mellitus with foot ulcer; L89.893 Pressure ulcer of other site, stage 3; L97.511 Non-pressure chronic ulcer of other part of right foot limited to breakdown of skin; E11.610 Type 2 diabetes mellitus with diabetic neuropathic arthropathy; E11.42 Type 2 diabetes mellitus with diabetic polyneuropathy; E11.69 Type 2 diabetes mellitus with other specified complication; M86.672 Other chronic osteomyelitis, left ankle and foot; E66.01 Morbid (severe) obesity due to excess calories; E78.5 Hyperlipidemia, unspecified; I87.2 Venous insufficiency (chronic) (peripheral); I10 Essential (primary) hypertension; Y83.5 Amputation of limb(s) as the cause of abnormal reaction of the patient, or of later complication, without mention of misadventure at the time of the procedure ==

== ENCOUNTER → 2018-07-19 | Outpatient (CLI) | payer OTHER ==
--- NOTE | 2018-07-20 11:07 | CON ---
[address] [address] CONSULTATION Name: ZENSHILPA Room: [facility] TRAY Winchester.John.#: [id number] Admission: 07/19/18 Attend Phys: Oneil Bradley DPM Discharge: Date of : 53 Report #: [id number] THIS REPORT FOR: //name// CC: Oneil Gentile DATE OF SERVICE: 07/19/2018 INFECTIOUS DISEASE FOLLOWUP ATTENDING PHYSICIAN: Oneil Bradley DPM HISTORY OF PRESENT ILLNESS: He is seen in the [facility] at [place], [place]. The patient returns today in followup. He is post right transmetatarsal amputation for chronic osteomyelitis, multifocal. He has completed roughly 5 weeks of therapy to this point. He actually had discontinued the antibiotics within the last few days. He generally feels reasonably well. He denies significant amount of focal, at his operative site, pain or discomfort. On evaluation, the wound appears to be dehisced in 2 or 3 sites across the expanse of the mid foot, degree of inflammation is only moderate at this point. He notes there is no recent systemic illness, no fevers or chills. Appetite has generally been good. He has been compliant with offloading per spouse. ASSESSMENT AND PLAN: Chronic osteomyelitis involving the right foot. He is status post transmetatarsal amputation. We will continue off the antibiotics at this point. Wound care per Dr. Bradley, offloading, compression. He is to call if problems or concerns. We will see as needed. <ELECTRONICALLY SIGNED> By: Blayne Randolph MD 07/20/18 1107 1657 [id number] Randolph MD /nt
== END ==
LOC: M.WC 05:04
DX: T87.81 Dehiscence of amputation stump (principal); E11.621 Type 2 diabetes mellitus with foot ulcer; L89.893 Pressure ulcer of other site, stage 3; L97.512 Non-pressure chronic ulcer of other part of right foot with fat layer exposed; L03.116 Cellulitis of left lower limb; L84 Corns and callosities; E11.610 Type 2 diabetes mellitus with diabetic neuropathic arthropathy; E11.40 Type 2 diabetes mellitus with diabetic neuropathy, unspecified; E11.69 Type 2 diabetes mellitus with other specified complication; M86.672 Other chronic osteomyelitis, left ankle and foot; E78.5 Hyperlipidemia, unspecified; I10 Essential (primary) hypertension; Y83.5 Amputation of limb(s) as the cause of abnormal reaction of the patient, or of later complication, without mention of misadventure at the time of the procedure